=== PATIENT | male | born 1950 | race Hispanic/Latino ===

== ENCOUNTER 2020-01-03 07:11 | Emergency (ER) | payer MEDICARE ==
[~2020-01-03] VITALS: Ht 167.6 cm; Wt 78.9 kg
--- OUTSIDE RECORDS SUMMARY | 2020-01-03 07:29 | XMS REPORT | Continuity of Care Document ---
Author Author [employer] Organization [employer] Address Unknown Phone Unavailable Care Team Providers Care Line Out Man Name Role Phone In Flow Information Exchange Unavailable Un available Problems Problem Status Onset Date Classification Date Reported Comments Source T84.52XD - INFECT/INFLM REACTION DUE TO Active 10/05/2019 [facility] HEMATURIA, INABILITY TO URINATE Active 03/18/2019 [facility] CATHETER CHECK Active 03/18/2019 [facility] Acute cystitis with hematuria 03/17/2019 03/19/2019 [facility] Other retention of urine 03/17/2019 03/19/2019 [facility] BLEEDING FROM PENIS Active 03/17/2019 [facility] RECTAL BLEEDING Active 11/18/2018 [facility] DURGA, BRIGHT RED RECTAL BLEEDING Active 11/18/2018 [facility] UNK Active 0 10/07/2018 [facility] D64.9-ANEMIA, UNSPECIFIED , D69.6-THROMB Active 09/26/2018 [facility] G89.29 Active 09/12/2018 [facility] G89.29 OTHER CHRONIC PAIN Acti ve 09/04/2018 [facility] Gastroesophageal reflux disease (disorder) Active Problem 03/19/2019 [facility] Human immunodeficiency virus infection (disorder) Active Problem 03/19/2019 [facility] Hypertensive disorder, systemic arterial (disorder) Active Problem 03/19/2019 [facility] Malignant tumor of rectum (disorder) Resolved Problem 07/2019 [facility] Hyperglycemia Active Problem 08/01/2019 [facility] Hepatic cirrhosis, unspecified hepatic c irrhosis type, unspecified whether ascites present Active Problem 08/01/2019 [facility] Renal insufficiency Active Problem 08/01/2019 [facility] Osteoporosis without current pathologica l fracture, unspecified osteoporosis type Active Problem 08/01/2019 [facility] HIV disease Active Problem 08/01/2019 [facility] HTN (hypertension) with goal to be determined Active Problem 08/01/2019 [facility] Other chronic pain Active Problem 08/01/2019 [facility] Influenza vaccine needed Active Diagnosis 11/20/2018 [facility] Need for vaccination with 13-polyvalent pneumococcal conjugate vaccine Active Diag nosis 12/11/2018 [facility] Low back pain Active Diagnosis 12/11/2018 [facility] Bleeding hemorrhoids Active Diagnosis 12/11/2018 [facility] Encounter to discuss test results Active Diagnosis 0 10/07/2018 [facility] Prostate cancer screening Acti ve Diagnosis 0 08/30/2018 [facility] Physical exam Active Diagnosis 08/30/2018 [facility] Pain in right hip Active Diagnosis 07/28/2019 [facility] Pain in left hip Active Diagnosis 07/28/2019 [facility] Insomnia, unspecified type Act jojo Problem [facility] Lumbago with sciatica, right side Active Problem [facility] Rash Active Diagnosis 03/10/2019 [facility] Need for shingles vaccine Acti ve Diagnosis 0 04/13/2019 [facility] Abnormal CBC Active Diagnosis 03/10/2019 [facility] Pain in left knee Active Diagnosis 06/15/2019 [facility] Prostatitis, unspecified prostatitis type Active Diagnosis 04/13/2019 [facility] Hematuria, unspecified type Ac tive Diagnosis 0 04/13/2019 [facility] Lumbago with sciatica, left side Active Problem [facility] Nausea Active Diagnosis 06/15/2019 [facility] Encounter for pre-operative cardiovascular clearance Active Diagnosis 06/15/2019 [facility] HEMORRHAGE OF ANUS AND RECTUM Active [facility] GROSS HEMATURIA Active [facility] RETENTION OF URINE, UNSPECIFIED Active [facility] Medications Medication Details Route Status Patient Instructions Ordering Provider Order Date Source Zofran 1 tablet Orally Active 4 MG Orally Once a day prn nausea Keven Vicente 06/11/2019 [facility] Pepcid 1/2 half tablet Orally Active 20 MG Orally twice a da y (bid) [facility] 05/26/2019 [facility] cefpodoxime 100 mg oral tablet 100 mg = 1 tab, PO, Q12H, X 7 day, # 14 tab, 0 Refill(s) Active 03/18/2019 [facility] Morphine 4 mg, Route: IVP, ONC E, Dosing Weight 83.636, kg, Priority: STAT, Start date: 03/17/19 19:51:00 [employer], Stop date: 03/17/19 19:51:00 [employer] Inactive 03/18/2019 [facility] Zofran 4 mg, Route: IVP, Drug form: INJ, ONCE, Dosing Weight 83.636, kg, Priority: STAT, Start date: 03/17/19 19:51:00 [employer], Stop date: 03/17/19 19:51:00 [employer] Inactive 03/18/2019 [facility] Ceftriaxone Notes: (Same As: Mal carlson). Use with 100 mL NS and infuse over 30 min MEDICATION WASTE Product Size: 1000 mg Product Wasted: ___ mg Inactive 03/18/2019 [facility] Sodium Chloride 0.9% (Bolus) IV 1,000 mL, 1000 ml/hr, Infuse Over: 1 hr, Route: IV, 1,000, Drug form: INJ, ONCE, Priority: STAT, Dosing Weight 83.636 kg, Start date: 03/17/19 19:46:00 [employer], Stop date: 03/17/19 19:46:00 [employer], 0 Inactive 03/18/2019 [facility] Xifaxan 1 tablet Orally Active 550 MG Orally Twice a d ay [facility] Vicente 01/20/2019 [facility] Propranolol Notes: Give with f ood. (Same as: Inderal) Inactive 11/22/2018 [facility] propranolol 10 mg oral tablet 10 mg = 1 tab, PO, Q12H, # 60 tab, 0 Refill(s), Pharmacy: [address] [facility] Active 11/21/2018 [facility] tramadol hydrochloride 50 MG Oral Tablet 50 mg = 1 tab, PO, Q8H, PRN Pain, X 5 day, # 20 tab, 0 Refill(s) Active 11/21/2018 [facility] Cefuroxime 250 MG Oral Tablet 250 mg = 1 tab, PO, BID, X 7 day, # 14 tab, 0 Refill(s), Pharmacy: [place] [id number] ([facility] Active 11/21/2018 [facility] Streptococcus pneumoniae serotype 1 caps ular antigen diphtheria [id number] protein conjugate vaccine / Streptococcus pneumoniae serotype 14 capsular antigen diphtheria SFI122 protein conjugate vaccine / Streptococcus pneumoniae serotype 18C capsular antigen d Notes: Shake well prior to use (Same as: Prevnar 13) No Longe r Active 11/20/2018 [facility] Phenazopyridine Notes: Give wi th meals. (Same as: Pyridium) No Longer Active 11/20/2018 [facility] Oxycodone Hydrochloride 5 MG Oral Tablet Notes: (Same as: Roxicodone) No Longer Active 11/20/2018 [facility] Fluconazole Notes: (Same as: D iflucan) Inactive 11/20/2018 [facility] Ceftriaxone Notes: (Same As: Mal carlson). Use with 100 mL NS and infuse over 30 min MEDICATION WASTE Product Size: 1000 mg Product Wasted: ___ mg No Longer Active 11/20/2018 [facility] Protonix Notes: Tablet should not be chewed or crushed. (Same as: Protonix) No Longer Active 11/20/2018 [facility] Hydralazine 10 mg, Route: IVP, Q20Min, Dosing Weight 82.727, kg, PRN Elevated BP, Start date: 11/19/18 16:26:00 CDT, Duration: 2 doses or times, Stop date: Limited # of times Inactive 11/19/2018 [facility] Metoprolol 1 mg, Route: IVP, Q 5Min, Dosing Weight 82.727, kg, PRN Other -See Comment, Start date: 11/19/18 16:26:00 CDT, Duration: 5 doses or times, Stop date: Limited # of times Inactive 11/19/2018 [facility] Acetaminophen 1,000 mg, Route: PO, Drug form: TAB, ONCE, Dosing Weight 82.727, kg, PRN Pain Score 1-3, Start date: 11/19/18 16:26:00 CDT Inactive 11/19/2018 [facility] Morphine 2 mg, Route: IVP, Q5M in, Dosing Weight 82.727, kg, PRN Pain Score 4-6, Start date: 11/19/18 16:26:00 CDT, Duration: 5 doses or times, Stop date: Limited # of times Inactive 11/19/2018 [facility] Flumazenil 0.2 mg, Route: IVP, PRN, Dosing Weight 82.727, kg, PRN Benzodiazepine Reversal, Initial dose, Start date: 11/19/18 16:26:00 CDT, Duration: 30 day, Stop date: 12/19/18 15:25:00 [employer] Inactive 11/19/2018 [facility] Naloxone 0.4 mg, Route: IVP, Q 2MIN, Dosing Weight 82.727, kg, PRN Narcotic Reversal, Start date: 11/19/18 16:26:00 CDT, Duration: 8 doses or times, Stop date: Limited # of times Inactive 11/19/2018 [facility] Albuterol 0.83 MG/ML Inhalant Solution 2.49 mg, Route: NEB, Q20Min, Dosing Weight 82.727, kg, PRN Wheezing, Priority: STAT, Start date: 11/19/18 16:26:00 CDT, Duration: 30 day, Stop date: 12/19/18 15:25:00 [employer] Inactive 11/19/2018 [facility] Diphenhydramine 12.5 mg, Route : IVP, Drug form: INJ, Q6H, Dosing Weight 82.727, kg, PRN Itching, Start date: 11/19/18 16:26:00 CDT, Duration: 30 day, Stop date: 12/19/18 16:25:00 [employer] Inactive 11/19/2018 [facility] Meperidine 12.5 mg, Route: IVP , Q30Min, Dosing Weight 82.727, kg, PRN Other -See Comment, For shivering, Start date: 11/19/18 16:26:00 CDT, Duration: 2 doses or times, Stop date: Limited # of times Inactive 11/19/2018 [facility] Ondansetron 4 mg, Route: IVP, ONCE, Dosing Weight 82.727, kg, PRN Nausea & Vomiting, Start date: 11/19/18 16:26:00 CDT Inactive 11/19/2018 [facility] Promethazine 12.5 mg, Route: I M, ONCE, Dosing Weight 82.727, kg, PRN Nausea & Vomiting, Start date: 11/19/18 16:26:00 CDT Inactive 11/19/2018 [facility] phenylephrine (ANES) Route: IV , Drug form: INJ, ONCE, Stop date: 11/19/18 15:46:00 CDT Inactive 11/19/2018 [facility] dexamethasone (ANES) Route: IV , Drug form: INJ, ONCE, Stop date: 11/19/18 15:46:00 CDT Inactive 11/19/2018 [facility] glycopyrrolate (ANES) Route: I V, Drug form: INJ, ONCE, Stop date: 11/19/18 15:46:00 CDT Inactive 11/19/2018 [facility] neostigmine (ANES) Route: IV, Drug form: INJ, ONCE, Stop date: 11/19/18 15:46:00 CDT Inactive 11/19/2018 [facility] propofol (ANES) Route: IV, Heriberto g form: INJ, ONCE, Stop date: 11/19/18 14:45:00 CDT Inactive 11/19/2018 [facility] rocuronium (ANES) Route: IV, D rug form: INJ, ONCE, Stop date: 11/19/18 14:45:00 CDT Inactive 11/19/2018 [facility] lidocaine (ANES) Route: IV, Dr ug form: INJ, ONCE, Stop date: 11/19/18 14:45:00 CDT Inactive 11/19/2018 [facility] fentaNYL (ANES) Route: IV, Heriberto g form: INJ, ONCE, Stop date: 11/19/18 14:40:00 CDT Inactive 11/19/2018 [facility] ondansetron (ANES) Route: IV, Drug form: INJ, ONCE, Stop date: 11/19/18 14:40:00 CDT Inactive 11/19/2018 [facility] Lactated Ringers Injection IV (ANES) 1000 mL Route: IV, Total Volume: 1,000, Start date: 11/19/18 13:50:00 CDT, Stop date: 11/19/18 14:50:00 CDT Inactive 11/19/2018 [facility] Exparel Notes: (Same as: Alexandru dc) NOT FOR IV use Postoperative analgesia: Infiltration (local): Dose is based on surgical site and volume required to cover the area (in general, the maximum total dose is 266 mg). Bunionectomy: 7 mL into the tissues surrounding the osteotomy and 1 mL into the subcutaneous tissue of the surgical site (total dose = 8 mL [106 mg]) Hemorrhoidectomy: 30 mL (20 mL vial diluted with 10 mL NS) divided and administered as 6 injections of 5 mL each (total dose = 30 mL [266 mg]) Interscalene brachial plexus nerve block: Single dose: Total shoulder arthroplasty or rotator cuff repair: 133 mg (10 mL) No Longer Active 11/19/2018 [facility] LR IV 1,000 mL 1,000 mL, Rate: 40 ml/hr, Infuse over: 25 hr, Route: IV, Dosing Weight 82.727 kg, Total Volume: 1,000, Start date: 11/19/18 12:50:00 CDT, Duration: 1 day, Stop date: 11/20/18 12:49:00 CDT, 1.98, m2, 0 No Longer Active 11/19/2018 [facility] d50 syringe 25 gm, 50 mL, Rout e: IV, Drug Form: INJ, Dosing Weight 82.727, kg, ONCE, Start date: 11/19/18 9:47:00 CDT, Stop date: 11/19/18 9:47:00 CDT, 0 Inactive 11/19/2018 [facility] Insulin regular Notes: (Same a s: Humulin R, NovoLIN R) Roll in palms of hands gently; Do not shake vigorously. WASTE: F/P - Black; E - Municipal Trash Bin Stable for 31 days at room temperature Expi res in days from Date Inactive 11/19/2018 [facility] sodium bicarbonate 8.4% additive 75 mEq + D5W 1/2NS 1,000 mL Notes: (sodium bicarb 8.4% (1 mEq/ml) 50 ml VL) No Longer Active 11/19/2018 [facility] abacavir 600 MG / Lamivudine 300 MG Oral Tablet 1 tab, Route: PO, Drug Form: TAB, Dosing Weight 82.727, kg, Daily, Start date: 11/19/18 9:00:00 CDT, Duration: 30 day, Stop date: 12/18/18 9:00:00 [employer] No Longer Active 11/19/2018 [facility] oxybutynin Notes: (Same as: Di tropan XL) "Do Not Crush" No Longer Active 11/19/2018 [facility] tamsulosin Notes: (Same As: Fl omax) "Do Not Crush" No Longer Active 11/19/2018 [facility] Epivir Notes: (Same as:Epivir) No Longer Active 11/19/2018 [facility] Ziagen Notes: (Same as: Ziagen) No Longer Active 11/19/2018 [facility] Trazodone Notes: (Same As: Axel yrel) No Longer Active 11/19/2018 [facility] Dilaudid Notes: (Same as: Dila udid) No Longer Active 11/19/2018 [facility] Dilaudid Notes: (Same as: Dila udid) Inactive 11/19/2018 [facility] ISENTRESS 400 mg, 1 tab, Route : PO, Drug form: TAB, BID, Dosing Weight 82.727, kg, Start date: 11/18/18 17:00:00 CDT, Duration: 30 day, Stop date: 12/18/18 9:00:00 [employer], 0 No Longer Active 11/18/2018 [facility] XIFAXAN Notes: Same as: Xifaxan No Longer Active 11/18/2018 [facility] NS 1,000 mL 1,000 mL, Rate: 75 ml/hr, Infuse over: 13.3 hr, Route: IV, Dosing Weight 82.727 kg, Total Volume: 1,000, Start date: 11/18/18 16:47:00 CDT, Duration: 30 day, Stop date: 12/18/18 16:46:00 [employer], 1.98, m2, 0 No Longer Active 11/18/2018 [facility] Morphine Notes: (Same as:MORPh ine Sulfate) No Longer Active 11/18/2018 [facility] Protonix Notes: For IV push re constitute with 10 ml 0.9% sodium chloride and push over 2 minutes. (Same as: Protonix) No Longer Active 11/18/2018 [facility] Dextrose 50% Syringe 12.5 gm, 25 mL, Route: IVP, Drug Form: INJ, Dosing Weight 82.727, kg, PRN, PRN Blood Glucose Results, Start date: 11/18/18 15:37:00 CDT, Duration: 30 day, Stop date: 12/18/18 14:36:00 [employer], 0 No Longer Active 11/18/2018 [facility] Glucagon 1 mg, Route: IM, Drug form: PDR/INJ, PRN, Dosing Weight 82.727, kg, PRN Blood Glucose Results, Start date: 11/18/18 15:37:00 CDT, Duration: 30 day, Stop date: 12/18/18 14:36:00 [employer], 0 No Longer Active 11/18/2018 [facility] Morphine 4 mg, Route: IVP, ONC E, Dosing Weight 82.727, kg, Start date: 11/18/18 15:20:00 CDT, Stop date: 11/18/18 15:20:00 CDT Inactive 11/18/2018 [facility] oxybutynin 10 mg oral tablet, extended release 10 mg = 1 tab, PO, Daily, 0 Refill(s) Active 11/18/2018 [facility] tamsulosin 0.4 mg oral capsule 0.4 mg = 1 cap, PO, Daily, 0 Refill(s) Active 11/18/2018 [facility] Tylenol 650 mg, Route: PO, Heriberto g form: TAB, ONCE, Dosing Weight 82.727, kg, Priority: STAT, Start date: 11/18/18 13:08:00 CDT, Stop date: 11/18/18 13:08:00 CDT Inactive 11/18/2018 [facility] NS (Bolus) IV 1,000 mL, 1,000 ml/hr, Infuse Over: 3 hr, Route: IV, ONCE, Priority: STAT, Dosing Weight 82.727 kg, Start date: 11/18/18 13:06:00 CDT, Stop date: 11/18/18 13:06:00 CDT Inactive 11/18/2018 [facility] Saline Flush 0.9% Notes: (Same as: BD Posiflush) No Longer Active 11/18/2018 [facility] Metoclopramide 10 mg, Route: I [employer]YCHIAT[employer]IC REGISTERED NURSE, Drug form: INJ, ONCE, Dosing Weight 82.727, kg, Priority: STAT, Start date: 11/18/18 11:41:00 CDT, Stop date: 11/18/18 11:41:00 CDT Inactive 11/18/2018 [facility] Pepcid 1 tablet Orally Active 10 mg Orally twice a da y (bid) K[facility]ente 11/10/2018 [facility] Hydrocortisone 25 MG/ML Topical Cream [Anusol HC] 1 appl, KS, BID, X 14 day, # 30 gm, 0 Refill(s) Active 10/14/2018 [facility] Sodium Chloride 0.9% IV 1,000 mL 1,000 mL, Rate: 75 ml/hr, Infuse over: 13.3 hr, Route: IV, Dosing Weight 80 kg, Total Volume: 1,000, Start date: 10/14/18 12:35:00 CDT, Duration: 1 day, Stop date: 10/15/18 12:34:00 CDT, 1.96, m2, 0 Inactive 10/14/2018 [facility] ferrous sulfate 325 mg oral enteric coated tablet 325 mg = 1 tab, PO, Daily, 0 Refill(s) Active 10/10/2018 [facility] rifaximin 550 MG Oral Tablet [XIFAXAN] 550 mg = 1 tab, PO, BID, 0 Refill(s) Active 10/10/2018 [facility] Trazodone Hydrochloride 50 MG Oral Tablet 50 mg = 1 tab, PO, Bedtime, 0 Refill(s) Active 10/10/2018 [facility] efavirenz 600 MG / Lamivudine 300 MG / T enofovir disoproxil fumarate 300 MG Oral Tablet [Symfi] 1 tab, PO, QAM, 0 Refill(s) Active 10/10/2018 [facility] Lactulose 667 MG/ML Oral Solution 10 gm = 15 mL, PO, Daily, 0 Refill(s) Active 10/10/2018 [facility] lisinopril 2.5 mg oral tablet 2.5 mg = 1 tab, PO, Daily, 0 Refill(s) Active 10/10/2018 [facility] Pepcid AC 10 mg oral tablet, chewable PO, Bedtime, 0 Refill(s) Active 10/10/2018 [facility] Raltegravir 400 MG Oral Tablet [ISENTRESS] 400 mg = 1 tab, PO, BID, # 60 tab, 0 Refill(s) Active 10/10/2018 [facility] amLODIPine 10 mg oral tablet 1 0 mg = 1 tab, PO, Daily, 0 Refill(s) Active 10/10/2018 [facility] as directed Orally Active 600-300-300 MG Orally d aily Keven Vicente [facility] Tramadol HCl 1 tablet as needed Orally Active 50 MG Orally every 6 hrs Keven Vicente [facility] Trazodone HCl 1-2 tablets Orally Active 50 MG Orally qhs prn Keven Vicente [facility] Isentress 1 tablet Orally Active 400 MG Orally Twice a d ay Keven Vicente [facility] Lisinopril-Hydrochlorothiazide 1 tablet Orally Active 20-12.5 MG Orally Once a day Keven Vicente [facility] Hydrocodone-Acetaminophen 1 ta blet as needed Orally Active 5-325 MG Orally every 6 hrs Keven Vicente [facility] Norvasc 1 tablet Orally Active 5 MG Orally twice a day (bid) Ghebranda [facility] Famotidine 1 tablet PO Active 40 mg PO twice a day (b id) K[facility] Norvasc 1 tablet Orally Active 10 mg Orally daily Keven Vicente [facility] Xifaxan 1 tablet Orally Active 550 MG Orally Twice a d ay Keven Vicente [facility] Tamsulosin HCl not defined Oral Active 0.4 MG Oral K[facility] Oxybutynin Chloride ER not def ined Oral Active 10 MG Oral Keven Vicente [facility] PEG 3350-KCl-Na Bicarb-NaCl no t defined Oral Active 420 GM Oral K[facility] Vicente [facility] Amlodipine Besylate 1 tablet Orally Active 10 MG Orally Once a day K[facility] Oxybutynin Chloride ER 1 tablet Oral Active 10 mg Oral daily Keven Vicente [facility] Tamsulosin HCl not defined Oral Active 0.4 MG Oral daily Keven Vicente [facility] Hydrocodone-Acetaminophen 1 ta blet as needed Orally Active 7.5- 325 MG Orally every 6 hrs Keven Vicente [facility] Hydrocodone-Acetaminophen as d irected Orally Active 10-500 MG Orally Keven Vicente [facility] Allergies, Adverse Reactions, Alerts Substance Category Reaction Severity Reaction type Status Date Reported Comments Source codeine Adverse Reaction Info Not Available Adverse Reaction Active 06/11/2019 [facility] standavere Adverse Reaction Info Not Available Adverse Reactio n Active 06/11/2019 [facility] Immunizations Immunization Date Given Site Status Last Updated Comments Source Shingrix 04/10/2019 completed [facility] [id number] 12/04/2018 completed [facility] [id number] [address] & [place] [id number] 10/22 completed [facility] Results Order Name Results Value Reference Range Date Interpretation Comments Source URINE AND STOOL UA Turbidity Marked *ABN* (03/17/19 7:17 PM) Clear 03/18/2019 [facility] URINE AND STOOL UA Spec Grav 1.018 <=1.030 03/18/2019 [facility] URINE AND STOOL UA pH 8.0 5.0 - 8.0 03/18/2019 [facility] URINE AND STOOL UA Protein 100 mg/dL Negative mg/dL 03/18/2019 [facility] URINE AND STOOL UA Glucose Negative mg/dL Negative mg/dL 03/18/2019 [facility] URINE AND STOOL UA Ketones Negative mg/dL Negative mg/dL 03/18/2019 [facility] URINE AND STOOL UA Bili Negative *NA* (03/17/19 7:17 PM) Negative 03/18/2019 [facility] URINE AND STOOL UA Blood Large *ABN* (03/17/19 7:17 PM) Negative 03/18/2019 [facility] URINE AND STOOL UA Nitrite Negative (03/17/19 7:17 PM) Negative 03/18/2019 [facility] URINE AND STOOL UA Leuk Est Moderate *ABN* (03/17/19 7:17 PM) Negative 03/18/2019 [facility] URINE AND STOOL UA WBC >182 0 - 5 03/18/2019 [facility] URINE AND STOOL UA RBC >182 0 - 2 03/18/2019 [facility] URINE AND STOOL UA Sq Epi None Seen 03/18/2019 [facility] URINE AND STOOL UA Color Red 03/18/2019 [facility] URINE AND STOOL UA Urobilinogen <=1.0 mg/dL 0.1 - 1.0 03/18/2019 [facility] st Culture: Urine >100,000 CFU/mL Proteus mirabilis Sensitivity Pending 03/18/2019 [facility] CHEM PANEL Glucose Lvl 232 70 - 99 03/17/2019 [facility] CHEM PANEL BUN 37 7 - 22 03/17/2019 [facility] CHEM PANEL Creatinine Lvl 2.85 0.50 - 1.40 03/17/2019 [facility] CHEM PANEL Sodium Lvl 138 135 - 145 03/17/2019 [facility] CHEM PANEL Potassium Lvl 5.2 3.5 - 5.1 03/17/2019 [facility] CHEM PANEL Chloride Lvl 114 95 - 109 03/17/2019 [facility] CHEM PANEL CO2 17 24 - 32 03/17/2019 [facility] CHEM PANEL Calcium Lvl 8.5 8.5 - 10.5 03/17/2019 [facility] CHEM PANEL AGAP 12.2 10.0 - 20.0 03/17/2019 [facility] CHEM PANEL eGFR 22 03/17/2019 Result Comment: The eGFR is calculated using the CKD-EPI formula. In most young, healthy individuals the eGFR will be >90 mL/min/1.73m2. The eGFR declines with age. An eGFR of 60-89 may be normal in some populations, particularly the elderly, for whom the CKD-EPI formula has not been extensively validated. Use of the eGFR is not recommended in the following populations:

Individuals with unstable creatinine concentrations, including patients and those with serious co-morbid conditions.

Patients with extremes in muscle mass or diet.

The data above are obtained from the National Kid[employer] Disease Education Program (NKDEP) which additionally recommends that when the eGFR is used in patients with extremes of body mass index for purposes of drug dosing, the eGFR should be multiplied by the estimated BMI. [facility] HEMATOLOGY WBC 3.5 3.7 - 10.4 03/17/2019 [facility] HEMATOLOGY RBC 2.67 4.70 - 6.10 03/17/2019 [facility] HEMATOLOGY Hgb 9.2 14.0 - 18.0 03/17/2019 [facility] HEMATOLOGY Hct 27.2 42.0 - 54.0 03/17/2019 [facility] HEMATOLOGY MCV 101.6 80.0 - 94.0 03/17/[address] [facility] MCH 34.5 27.0 - 31.0 03/17/[address] [facility] MCHC 33.9 32.0 - 36.0 03/17/[address] [facility] RDW 14.6 11.5 - 14.5 03/17/[address] [facility] Platelet 91 133 - 450 03/17/[address] [facility] MPV 7.0 7.4 - 10.4 03/17/2019 [facility] HEMATOLOGY PT 15.0 12.0 - 14.7 03/17/2019 [facility] HEMATOLOGY INR 1.17 0.85 - 1.17 03/17/2019 [facility] HEMATOLOGY PTT 38.5 22.9 - 35.8 03/17/2019 [facility] HEMATOLOGY Plt Morph Gricel l (03/17/19 1:02 PM) Normal 03/17/2019 [facility] HEMATOLOGY Segs 81.1 45.0 - 75.0 03/17/2019 [facility] HEMATOLOGY Lymphocytes 3.1 20.0 - 40.0 03/17/2019 [facility] HEMATOLOGY Monocytes 15.5 2.0 - 12.0 03/17/2019 [facility] HEMATOLOGY Eosinophils 0.1 0.0 - 4.0 03/17/2019 [facility] HEMATOLOGY Basophils 0.2 0.0 - 1.0 03/17/2019 [facility] HEMATOLOGY Neutrophils # 2.8 1.5 - 8.1 03/17/[address] [facility] Lymphocytes # 0.1 1.0 - 5.5 03/17/[address] [facility] Monocytes # 0.5 0.0 - 0.8 03/17/[address] [facility] Macrocyte 1+ *ABN* (03/17/19 1:02 PM) None Seen 03/17/2019 [facility] CHEM PANEL Phosphorus 2.0 2.5 - 4.5 11/21/2018 [facility] ELECTROLYTES AGAP 8.9 10.0 - 20.0 11/21/2018 [facility] ELECTROLYTES Glucose Lvl 108 70 - 99 11/21/2018 [facility] ELECTROLYTES BUN 19 7 - 22 11/21/2018 [facility] ELECTROLYTES Creatinine Lvl 1.7 1 0.50 - 1.40 11/21/2018 [facility] ELECTROLYTES Sodium Lvl 138 135 - 145 11/21/2018 [facility] ELECTROLYTES Potassium Lvl 3.9 3.5 - 5.1 11/21/2018 [facility] ELECTROLYTES Chloride Lvl 111 95 - 109 11/21/2018 [facility] ELECTROLYTES CO2 22 24 - 32 11/21/2018 [facility] ELECTROLYTES Calcium Lvl 7.4 8.5 - 10.5 11/21/2018 [facility] ELECTROLYTES eGFR 41 11/21/2018 Result Comment: The eGFR is calculated using the CKD-EPI formula. In most young, healthy individuals the eGFR will be >90 mL/min/1.73m2. The eGFR declines with age. An eGFR of 60-89 may be normal in some populations, particularly the elderly, for whom the CKD-EPI formula has not been extensively validated. Use of the eGFR is not recommended in the following populations:

Individuals with unstable creatinine concentrations, including patients and those with serious co-morbid conditions.

Patients with extremes in muscle mass or diet.

The data above are obtained from the National Kidney Disease Education Program (NKDEP) which additionally recommends that when the eGFR is used in patients with extremes of body mass index for purposes of drug dosing, the eGFR should be multiplied by the estimated BMI. [facility] HEMATOLOGY Segs 73.0 45.0 - 75.0 11/21/[address] [facility] Lymphocytes 7.4 20.0 - 40.0 11/21/[address] [facility] Monocytes 12.1 2.0 - 12.0 11/21/[address] [facility] Eosinophils 7.1 0.0 - 4.0 11/21/[address] [facility] Basophils 0.4 0.0 - 1.0 11/21/[address] [facility] Neutrophils # 2.6 1.5 - 8.1 11/21/[address] [facility] Lymphocytes # 0.3 1.0 - 5.5 11/21/[address] [facility] Monocytes # 0.4 0.0 - 0.8 11/21/[address] [facility] Eosinophils # 0.3 0.0 - 0.5 11/21/[address] [facility] WBC 3.6 3.7 - 10.4 11/21/[address] [facility] RBC 2.50 4.70 - 6.10 11/21/[address] [facility] Hgb 8.4 14.0 - 18.0 11/21/[address] [facility] Hct 24.4 42.0 - 54.0 11/21/[address] [facility] MCV 97.5 80.0 - 94.0 11/21/[address] [facility] MCH 33.5 27.0 - 31.0 11/21/[address] [facility] MCHC 34.4 32.0 - 36.0 11/21/[address] [facility] RDW 18.3 11.5 - 14.5 11/21/[address] [facility] Platelet 63 133 - 450 11/21/[address] [facility] MPV 7.5 7.4 - 10.4 11/21/2018 [facility] ELECTROLYTES AGAP 10.0 10.0 - 20.0 11/20/2018 [facility] ELECTROLYTES Glucose Lvl 102 70 - 99 11/20/2018 [facility] ELECTROLYTES BUN 18 7 - 22 11/20/2018 [facility] ELECTROLYTES Creatinine Lvl 1.5 7 0.50 - 1.40 11/20/2018 [facility] ELECTROLYTES Sodium Lvl 140 135 - 145 11/20/2018 [facility] ELECTROLYTES Potassium Lvl 5.0 3.5 - 5.1 11/20/2018 [facility] ELECTROLYTES Chloride Lvl 115 95 - 109 11/20/2018 [facility] ELECTROLYTES CO2 20 24 - 32 11/20/2018 [facility] ELECTROLYTES Calcium Lvl 7.5 8.5 - 10.5 11/20/2018 [facility] ELECTROLYTES eGFR 45 11/20/2018 Result Comment: The eGFR is calculated using the CKD-EPI formula. In most young, healthy individuals the eGFR will be >90 mL/min/1.73m2. The eGFR declines with age. An eGFR of 60-89 may be normal in some populations, particularly the elderly, for whom the CKD-EPI formula has not been extensively validated. Use of the eGFR is not recommended in the following populations:

Individuals with unstable creatinine concentrations, including patients and those with serious co-morbid conditions.

Patients with extremes in muscle mass or diet.

The data above are obtained from the National Kidney Disease Education Program (NKDEP) which additionally recommends that when the eGFR is used in patients with extremes of body mass index for purposes of drug dosing, the eGFR should be multiplied by the estimated BMI. [facility] HEMATOLOGY WBC 3.5 3.7 - 10.4 11/20/2018 [facility] HEMATOLOGY RBC 2.71 4.70 - 6.10 11/20/2018 [facility] HEMATOLOGY Hgb 9.0 14.0 - 18.0 11/20/2018 [facility] HEMATOLOGY Hct 26.4 42.0 - 54.0 11/20/2018 [facility] HEMATOLOGY MCV 97.5 80.0 - 94.0 11/20/2018 [facility] HEMATOLOGY MCH 33.3 27.0 - 31.0 11/20/[address] [facility] MCHC 34.2 32.0 - 36.0 11/20/2018 [facility] HEMATOLOGY RDW 18.8 11.5 - 14.5 11/20/2018 [facility] HEMATOLOGY Platelet 72 133 - 450 11/20/2018 [facility] HEMATOLOGY MPV 7.9 7.4 - 10.4 11/20/2018 [facility] HEMATOLOGY RBC Morph Gricel l (11/20/18 5:19 AM) Normal 11/20/2018 [facility] HEMATOLOGY Plt Morph Gricel l (11/20/18 5:19 AM) Normal 11/20/2018 [facility] HEMATOLOGY Segs 75.4 45.0 - 75.0 11/20/2018 [facility] HEMATOLOGY Lymphocytes 9.0 20.0 - 40.0 11/20/2018 [facility] HEMATOLOGY Monocytes 10.3 2.0 - 12.0 11/20/2018 [facility] HEMATOLOGY Eosinophils 5.0 0.0 - 4.0 11/20/2018 [facility] HEMATOLOGY Basophils 0.3 0.0 - 1.0 11/20/2018 [facility] HEMATOLOGY Neutrophils # 2.6 1.5 - 8.1 11/20/2018 [facility] HEMATOLOGY Lymphocytes # 0.3 1.0 - 5.5 11/20/2018 [facility] HEMATOLOGY Monocytes # 0.4 0.0 - 0.8 11/20/2018 [facility] HEMATOLOGY Eosinophils # 0.2 0.0 - 0.5 11/20/2018 [facility] URINE AND STOOL UA Color Yellow *NA* (11/19/18 7:27 PM) Yellow 11/20/2018 [facility] URINE AND STOOL UA Turbidity Slight *ABN* (11/19/18 7:27 PM) Clear 11/20/2018 [facility] URINE AND STOOL UA Spec Grav 1.010 <=1.030 11/20/2018 [facility] URINE AND STOOL UA pH 8.0 5.0 - 8.0 11/20/2018 [facility] URINE AND STOOL UA Protein 30 mg/dL Negative mg/dL 11/20/2018 [facility] URINE AND STOOL UA Glucose Negative mg/dL Negative mg/dL 11/20/[address] [facility] st URINE AND STOOL UA Ketones Negative mg/dL Negative mg/dL 11/20/[address] [facility] [address] URINE AND STOOL UA Bili Negative *NA* (11/19/18 7:27 PM) Negative 11/20/2018 [facility] URINE AND STOOL UA Blood Moderate *ABN* (11/19/18 7:27 PM) Negative 11/20/2018 [facility] URINE AND STOOL UA Nitrite Positive *ABN* (11/19/18 7:27 PM) Negative 11/20/2018 [facility] URINE AND STOOL UA Leuk Est Large *ABN* (11/19/18 7:27 PM) Negative 11/20/2018 [facility] URINE AND STOOL UA WBC 70 0 - 5 11/20/2018 [facility] URINE AND STOOL UA RBC 3 0 - 2 11/20/2018 [facility] URINE AND STOOL UA Bacteria Many /HPF None Seen /HPF 11/20/2018 [facility] URINE AND STOOL UA Mucus Few /LPF None Seen /LPF 11/20/2018 [facility] URINE AND STOOL UA Tr Phos [place] Moderate /HPF None Seen /HPF 11/20/2018 [facility] URINE AND STOOL UA Landrum Yeast Few /HPF None Seen /HPF 11/20/2018 [facility] URINE AND STOOL UA Sq Epi None Seen 11/20/2018 [facility] URINE AND STOOL UA Urobilinogen <=1.0 mg/dL 0.1 - 1.0 11/20/2018 [facility] URINE CHEM U Creatinine 38.40 11/20/2018 [facility] URINE CHEM U Sodium 115 11/20/2018 [facility] CHEM PANEL Glucose Lvl 113 70 - 99 11/19/2018 [facility] CHEM PANEL BUN 18 7 - 22 11/19/2018 [facility] CHEM PANEL Creatinine Lvl 1.66 0.50 - 1.40 11/19/2018 [facility] CHEM PANEL Sodium Lvl 139 135 - 145 11/19/2018 [facility] CHEM PANEL Potassium Lvl 5.7 3.5 - 5.1 11/19/2018 [facility] CHEM PANEL Chloride Lvl 113 95 - 109 11/19/2018 [facility] CHEM PANEL CO2 21 24 - 32 11/19/2018 [facility] CHEM PANEL Calcium Lvl 7.4 8.5 - 10.5 11/19/2018 [facility] CHEM PANEL AGAP 10.7 10.0 - 20.0 11/19/2018 [facility] CHEM PANEL eGFR 42 11/19/2018 Result Comment: The eGFR is calculated using the CKD-EPI formula. In most young, healthy individuals the eGFR will be >90 mL/min/1.73m2. The eGFR declines with age. An eGFR of 60-89 may be normal in some populations, particularly the elderly, for whom the CKD-EPI formula has not been extensively validated. Use of the eGFR is not recommended in the following populations:

Individuals with unstable creatinine concentrations, including patients and those with serious co-morbid conditions.

Patients with extremes in muscle mass or diet.

The data above are obtained from the National Kidney Disease Education Program (NKDEP) which additionally recommends that when the eGFR is used in patients with extremes of body mass index for purposes of drug dosing, the eGFR should be multiplied by the estimated BMI. [facility] BLOOD BANK RESULTS RBC product Product available 5 (11/19/18 1:09 PM) 11/19/2018 Result Comment: 11/19/2018 1 3:25 [id number]
notified [facility] BLOOD BANK RESULTS RBC product Product available 6 (11/19/18 1:06 PM) 11/19/2018 Result Comment: 11/19/2018 1 3:24 [id number]
notified [facility] BLOOD BANNER RESULTS Platelet product Product available 4 (11/19/18 1:05 PM) 11/19/2018 Result Comment: 11/19/2018 1 3:24 [id number]
notified [facility] Segs 60.4 45.0 - 75.0 11/19/[address] [facility] Lymphocytes 15.5 20.0 - 40.0 11/19/[address] [facility] Monocytes 11.0 2.0 - 12.0 11/19/[address] [facility] Eosinophils 12.2 0.0 - 4.0 11/19/[address] [facility] Basophils 0.9 0.0 - 1.0 11/19/[address] [facility] Neutrophils # 1.7 1.5 - 8.1 11/19/[address] [facility] Lymphocytes # 0.4 1.0 - 5.5 11/19/[address] [facility] Monocytes # 0.3 0.0 - 0.8 11/19/[address] [facility] Eosinophils # 0.3 0.0 - 0.5 11/19/[address] [facility] Macrocyte 1+ *ABN* (11/19/18 6:41 AM) None Seen 11/19/[address] [facility] WBC 2.8 3.7 - 10.4 11/19/[address] [facility] RBC 2.37 4.70 - 6.10 11/19/[address] [facility] Hgb 8.1 14.0 - 18.0 11/19/[address] [facility] Hct 24.1 42.0 - 54.0 11/19/2018 [facility] HEMATOLOGY MCV 101.4 80.0 - 94.0 11/19/[address] [facility] MCH 34.1 27.0 - 31.0 11/19/[address] [facility] MCHC 33.7 32.0 - 36.0 11/19/[address] [facility] RDW 16.9 11.5 - 14.5 11/19/[address] [facility] Platelet 74 133 - 450 11/19/[address] [facility] MPV 7.2 7.4 - 10.4 11/19/2018 [facility] BLOOD BANK RESULTS ABO/Rh B POS 11/18/2018 [facility] BLOOD BANK RESULTS Antibody Scrn Negative (11/18/18 11:57 AM) 11/18/2018 [facility] CHEM PANEL B/C Ratio 13 6 - 25 11/18/2018 [facility] CHEM PANEL Globulin 4.6 2.7 - 4.2 11/18/2018 [facility] CHEM PANEL A/G Ratio 0.7 0.7 - 1.6 11/18/2018 [facility] CHEM PANEL Total Protein 7.6 6.4 - 8.4 11/18/2018 [facility] CHEM PANEL Albumin Lvl 3.0 3.5 - 5.0 11/18/2018 [facility] CHEM PANEL ALT 29 0 - 65 11/18/2018 [facility] CHEM PANEL AST 40 0 - 37 11/18/2018 [facility] CHEM PANEL Alk Phos 244 39 - 136 11/18/2018 [facility] CHEM PANEL Bili Total 0.5 0.2 - 1.3 11/18/[address] [facility] INR 1.01 0.85 - 1.17 11/18/2018 [facility] HEMATOLOGY PT 13.1 12.0 - 14.7 11/18/[address] [facility] PTT 39.6 22.9 - 35.8 11/18/2018 [facility] HEMATOLOGY Macrocyte 1+ *ABN* (11/18/18 11:57 AM) None Seen 11/18/2018 [facility] Pathology Reports No Data Provided for This Section Diagnostic Reports Report Value Date Source Arthrocentesis Major Joint DX EXAM: FLUOROSCOPY-GUIDED LEFT HIP ASPIRATION DATE: 10/23/2019 11:41 CDT. 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 COMPARISON: None. PRE-PROCEDURE: Consent: An informed consent was obtained from the patient, prior to the procedure. Site and side were marked. Appropriate time out procedures were performed. PROCEDURE: The skin was prepped and draped in the usual fashion under aseptic precautions. 1% lidocaine was utilized for local anesthesia. Preliminary imaging demonstrates postoperative changes of total hip arthroplasty. Under fluoroscopic guidance a 22 gauge long spinal needle was used to access the hip joint. Approximately 16 mL of pink-tinged serous/synovial fluid were aspirated from the joint. Fluid was sent to the lab for culture. No immediate complications. Preprocedure pain score: 7/10 FLUOROSCOPY TIME: 0.13 minutes FLUOROSCOPY DOSE: 10.[address] Keiry Root, attending, was present for the procedure. IMPRESSION: Technically successful fluoroscopy-guided left hip aspiration. 10/23/2019 [facility] Chest wo contrast CT Radiation Dose CTDIVOL = 0 (mGy): DLP = 309.91 (mGy-cm) PROCEDURE INFORMATION: Exam: CT Chest Without Contrast Exam date and time: 03/20/2019 12:55 PM Age: 68 years old Clinical indication: /hemoptysis () TECHNIQUE: Imaging protocol: Computed tomography of the chest without contrast. Total DLP: 309.91 mGy-cm Radiation optimization: All CT scans at this facility use at least one of these dose optimization techniques: automated exposure control; mA and/or kV adjustment per patient size (includes targeted exams where dose is matched to clinical indication); or iterative reconstruction. COMPARISON: No relevant prior available for comparison. FINDINGS: Lungs: There are nodular and ground-glass opacities within both upper lobes, right greater than left and within the apical right lower lobe. Mild dependent atelectasis. Pleural space: No pneumothorax. No pleural effusion. Heart: There are coronary artery calcifications. The heart is enlarged. Aorta: No aortic aneurysm. Lymph nodes: No enlarged lymph nodes. Evaluation of hilar adenopathy is limited without contrast. Liver: Cirrhotic morphology of the liver. Gallbladder and bile ducts: Gallbladder is surgically absent. Spleen: Splenomegaly. Intraperitoneal space: There is abdominal ascites. Bones/joints: There are Schmorl's nodes within the thoracic spine. There is an old, healed left rib fracture. Soft tissues: There is bilateral gynecomastia. IMPRESSION: 1. Nodular ground-glass opacities within the mid to upper lung zones. This is nonspecific and may be related to pneumonitis or in the setting of hemoptysis alveolar hemorrhage 2. Cirrhotic liver with evidence of port al hypertension Yue Castillo MD On 03/21/2019 09:50:23; [id number] 03/20/2019 [facility] Retroperitoneal Complete US [place] OCEDURE INFORMATION: Exam: US Retroperitoneal Complete. Exam date and time: 03/19/2019 5:03 PM Age: 68 years old Clinical indication: Abnormal findings; Abnormal lab test; Abnormal kidney function lab tests; Additional info: Renal insufficiency/durga/ckd TECHNIQUE: Imaging protocol: Real-time ultrasound of the retroperitoneum with image documentation. Complete exam. COMPARISON: RETROPERITONEAL COMPLETE US 11/19/2018 10:[address] 03/18/2019 11:22:46 PM FINDINGS: Right kidney: Measures 11.3 cm. Normal morphology and echogenicity. No echogenic foci/nephrolithiasis. No hydronephrosis. Left kidney: Measures 10.7 cm. Normal morphology and echogenicity. No echogenic foci/nephrolithiasis. No hydronephrosis. Aorta: Visualized proximal abdominal aorta is unremarkable. Mid and distal aorta not visualized due to obscuring bowel gas. Common iliac arteries: Not visualized due to obscuring bowel gas. Inferior vena cava: Unremarkable. Bladder: Clemente catheter is in place within decompressed bladder, which limits evaluation. IMPRESSION: 1. Unremarkable renal ultrasound exam. 2. Decompressed urinary bladder with Fol ey catheter place. Ramone Mariscal MD On 03/19/2019 17:29:04; [id number] 03/19/2019 [facility] Renal Stone CT Radiation Dose CTDIVOL = 0 (mGy): DLP = 1169.89 (mGy-cm) PROCEDURE INFORMATION: Exam: CT Abdomen And Pelvis Without Contrast Exam date and time: 03/18/2019 11:22 PM Age: 68 years old Clinical indication: Abdominal pain; Additional info: Abdominal pain, acute/renal stone protocol. PT presents with C/O catheter check. Reports its leaking blood. States he had a procedure on prostate on Saturday. TECHNIQUE: Imaging protocol: Computed tomography of the abdomen and pelvis without contrast. Total DLP: 1169.89 mGy-cm Radiation optimization: All CT scans at this facility use at least one of these dose optimization techniques: automated exposure control; mA and/or kV adjustment per patient size (includes targeted exams where dose is matched to clinical indication); or iterative reconstruction. COMPARISON: Comparison made to CT abdomen dated 11/18/2018. FINDINGS: Lungs: Mild lung base bronchiectasis, no infiltrate. Global cardiomegaly. Right gynecomastia. Liver: Micronodular liver contour consistent with cirrhosis. No mass. Gallbladder and bile ducts: Post cholecystectomy. No ductal dilation. Pancreas: Normal. No ductal dilation. Spleen: Splenomegaly, 13.9 cm craniocaudad splenic length. Adrenals: Normal. No mass. Kidneys and ureters: No renal stone or hydronephrosis bilaterally. Stomach and bowel: Unremarkable. No obstruction. No mucosal thickening. Appendix: Not visualized. Intraperitoneal space: Unremarkable. No free air. Trace perihepatic and pelvic ascites. Retroperitoneal space: No adenopathy. Vasculature: Unremarkable. No abdominal aortic aneurysm. Lymph nodes: Unremarkable. No enlarged lymph nodes. Bladder: Clemente catheter decompresses the urinary bladder. Reproductive: Unremarkable as visualized. Bones/joints: Bilateral hip arthroplasty hardware. No acute fracture. Previous L4 kyphoplasty Soft tissues: Limited pelvic evaluation related to beam hardening artifact. IMPRESSION: 1. Liver cirrhosis. Small volume ascites and splenomegaly (13.9 cm craniocaudad splenic length) is secondary evidence for portal venous hypertension. 2. Very limited pelvic soft tissue evalu ation by CT related to beam hardening artifact from bilateral hip arthroplasty hardware. No made of a Clemente catheter which appears to be within the urinary bladder. 3. Previous cholecystectomy. 4. Cardiomegaly, bibasilar lung bronchie ctasis, mild. No acute infiltrate. 5. Right gynecomastia. 6. Previous L4 kyphoplasty. Edenilson Blue MD On 03/18/2019 23:47:45; [id number] 03/18/2019 [facility] Retroperitoneal Complete US Cl inical Indication: Renal insufficiency - durga; Comparison: None TECHNIQUE: Multiple longitudinal and transverse real time sonographic images of the kidneys and urinary bladder are obtained. FINDINGS: Suboptimal evaluation secondary to overlying bowel gas and patient's difficulty holding breath for the exam. KIDNEY: The right kidney measures 10.5 x 5.7 x 4.4 cm. The left kidney measures 11.2 x 6.8 x 4.6 cm. The kidneys are normal in size, shape, contour, and position. The cortices are normal in thickness and the corticomedullary differentiation is maintained. There is no hydronephrosis, nephrolithiasis, or abnormal perinephric collections. BLADDER: Scanning through the pelvis reveals the bladder to be partially distended with anechoic urine. ASCITES: No ascites noted. AORTA AND IVC: Not well visualized. IMPRESSION: Within limitations, unremarkable renal ultrasound. SL: [id number] 11/19/2018 [facility] Abdomen/Pelvis wo IV contrast CT PROCEDURE: CT ABDOMEN AND PELVIS WITHOUT CONTRAST Clinical Indication: Rectal bleeding and cirrhosis. . Comparison: No relevant priors available. TECHNIQUE: Helical imaging was performed diaphragm through the symphysis with multiplanar reconstructions. IV CONTRAST: None. GI CONTRAST: None. CT imaging performed at this location utilizes radiation dose optimization techniques which include one or more of the following: -Automated exposure control -Adjustment of the mA and/or kV accordin g to patient size -Use of iterative reconstruction 8bit ue CT Radiation Dose DLP 1008.05 mGy-cm FINDINGS: This examination is limited for the evaluation of solid organs and vascular structures due to lack of intravenous contrast. LOWER CHEST: The lung bases are clear. LIVER: Nodular hepatic contour. No focal liver lesions. GALLBLADDER: Cholecystectomy. SPLEEN: Spleen is enlarged. No focal splenic lesions evident. PANCREAS: Normal. ADRENALS: Normal. KIDNEYS: No stones, hydronephrosis or hydroureter. No perinephric fluid collections. BOWEL: Large and small bowel are normal. However the edema hardening artifact from the patient's hip prostheses obscure the distal sigmoid colon and rectum. PERITONEUM: No free intraperitoneal fluid or air. RETROPERITONEUM: No adenopathy. The aorta is normal. PELVIS: No pelvic mass. The urinary bladder is normal. MUSCULOSKELETAL: Patient has undergone bilateral hip arthroplasties in the past. There is moderate chronic appearing compression of the L4 vertebral body. Bones otherwise appear intact. IMPRESSION: 1. Cirrhosis and splenomegaly. 2. The patient's bilateral hip prosthese s obscure the rectum and adjacent soft tissues. END REPORT SL: [id number] 11/18/2018 [facility] Consultation Notes No Data Provided for This Section Discharge Summaries No Data Provided for This Section History and Physicals No Data Provided for This Section Vital Signs Vital Sign Value Date Comments Source Weight 189 04/10/2019 [facility] Height 63 0 04/10/2019 [facility] Temperature Oral (F) 98.1 F 04/10/2019 [facility] Heart Rate 78 04/10/2019 [facility] Diastolic (mm Hg) 56 04/10/2019 [facility] Systolic (mm Hg) 110 04/10/2019 [facility] Systolic (mm Hg) 160 03/18/2019 [facility] Diastolic (mm Hg) 71 03/18/2019 [facility] Rate 19 03/18/2019 [facility] Temperature Oral (F) 98.2 F 03/18/2019 [facility] Respitory Rate 21 03/18/2019 [facility] Systolic (mm Hg) 161 03/18/2019 [facility] Diastolic (mm Hg) 71 03/18/2019 [facility] Respitory Rate 25 03/18/2019 [facility] Systolic (mm Hg) 150 03/17/2019 [facility] Diastolic (mm Hg) 73 03/17/2019 [facility] Heart Rate 101 03/17/2019 [facility] Temperature Oral (F) 98.1 F 03/17/2019 [facility] Height 167.64 cm 03/17/2019 [facility] BMI Calculated 29.76 03/17/2019 [facility] Weight 83.636 03/17/2019 [facility] Weight 185 03/05/2019 [facility] Height 63 0 03/05/2019 [facility] Temperature Oral (F) 98.1 F 03/05/2019 [facility] Heart Rate 85 03/05/2019 [facility] Diastolic (mm Hg) 60 03/05/2019 [facility] Systolic (mm Hg) 118 03/05/2019 [facility] Weight 176 12/04/2018 [facility] Height 63 1 [facility] Heart Rate 79 12/04/2018 [facility] Diastolic (mm Hg) 68 12/04/2018 [facility] Systolic (mm Hg) 122 12/04/2018 [facility] Temperature Oral (F) 100.0 F 11/21/2018 [facility] Heart Rate 76 11/21/2018 [facility] Systolic (mm Hg) 138 11/21/2018 [facility] Diastolic (mm Hg) 68 11/21/2018 [facility] Temperature Oral (F) 98.9 F 11/21/2018 [facility] Heart Rate 78 11/21/2018 [facility] Systolic (mm Hg) 133 11/21/2018 [facility] Diastolic (mm Hg) 69 11/21/2018 [facility] Temperature Oral (F) 99.9 F 11/21/2018 [facility] Heart Rate 77 11/21/2018 [facility] Systolic (mm Hg) 128 11/21/2018 [facility] Diastolic (mm Hg) 65 11/21/2018 [facility] Respitory Rate 18 11/19/2018 [facility] Respitory Rate 18 11/19/2018 [facility] Respitory Rate 17 11/19/2018 [facility] Height 167.64 cm 11/18/2018 [facility] BMI Calculated 29.44 11/18/2018 [facility] Weight 82.727 11/18/2018 [facility] Respitory Rate 16 10/14/2018 [facility] Systolic (mm Hg) 132 10/14/2018 [facility] Diastolic (mm Hg) 66 10/14/2018 [facility] Respitory Rate 20 10/14/2018 [facility] Systolic (mm Hg) 115 10/14/2018 [facility] Diastolic (mm Hg) 63 10/14/2018 [facility] Respitory Rate 21 10/14/2018 [facility] Systolic (mm Hg) 105 10/14/2018 [facility] Diastolic (mm Hg) 65 10/14/2018 [facility] Temperature Oral (F) 97.6 F 10/10/2018 [facility] Heart Rate 78 10/10/2018 [facility] Height 170.18 cm 10/10/2018 [facility] Weight 80 0 10/10/2018 [facility] BMI Calculated 27.62 10/10/2018 [facility] Weight 179 09/22/2018 [facility] Height 63 0 09/22/2018 [facility] Heart Rate 97 09/22/2018 [facility] Diastolic (mm Hg) 62 09/22/2018 [facility] Systolic (mm Hg) 118 09/22/2018 [facility] Weight 171 08/22/2018 [facility] Height 63 0 08/22/2018 [facility] Heart Rate 97 08/22/2018 [facility] Diastolic (mm Hg) 64 08/22/2018 [facility] Systolic (mm Hg) 124 08/22/2018 [facility] Encounters Location Location Details Encounter Type Encounter Number Reason For Visit Attending Provider ADM Date DC Date Status Source [facility] OP Therapy Patients [id number] Lakshmi Valencia 09/12/2018 10/12/2018 [facility] Bedded Outpatient [id number] Octaviano Ortiz 10/14/2018 10/14/2018 [facility] [place] OP Therapy Patients [id number] Lakshmi Valencia 10/16/2018 11/15/2018 [facility] OP Therapy Patients [id number] Lakshmi Valencia 11/17/2018 12/17/2018 [facility] Inpatient [id number] Jaguar Granados 11/18/2018 11/21/2018 [facility] Outpatient [id number] Faith Benavides 11/19/2018 Active [facility] [id number] [facility] 12/02/2018 Active [facility] [id number] Mohummed Mahadani 12/02/2018 12/02/2018 [facility] [id number] Faith Benavides 12/12/2018 Active [facility] [id number] Mohummed Kennedy 12/12/2018 12/12/2018 [facility] OP Therapy Patients [id number] Lakshmi Valencia 12/19/2018 01/18/2019 [facility] [place] OP Therapy Patients [id number] Lakshmi Valencia 01/19/2019 02/11/2019 [facility] [place] OP Therapy Patients [id number] Lakshmi Valencia 02/13/2019 03/15/2019 [facility] Emergency [id number] Tk Rico 03/17/2019 03/18/2019 [facility] Outpatient [id number] Cyndy Ocampo 09/24/2019 [facility] [id number] Cyndy Ocampo 10/12/2019 Active [facility] Outpatient [id number] Cyndy Georgemarkie 10/27/2019 Active [facility] Procedures Procedure Code Date Perfomer Comments Source Achilles tendon repair [id number] 02/12/1984 [facility] Arthroplasty [id number] [facility] Arthroplasty of knee [id number] [facility] Cholecystectomy [id number] [facility] Colonoscopy [id number] [facility] Esophagogastroduodenoscopy [id number] [facility] Operation [id number] [facility] Assessment and Plan Assessment and Plan Date Source Extracted from:Title: Clinical Document Author: Omari Burleson MD Date: 11/21/18 [facility] Progress Note Omari Burleson MD Subjective: No events overnight. No CP, no SOB, no abd pain, no urinary signs of symptoms Scheduled Meds (10): 11/19/18 abacavir (Ziagen) 600 mg PO Christal ly 11/20/18 cefTRIAXone + sterile water 10 mL 1 gm IV [id number] 120 ml/hr 11/19/18 lamiVUDine (Epivir) 300 mg PO D aily 11/19/18 oxybutynin 10 mg PO Daily 11/19/18 pantoprazole (Protonix) 40 mg P O Q12H 11/20/18 phenazopyridine 100 mg PO TID-A fter Meals 11/21/18 propranolol 10 mg PO Q12H 11/18/18 raltegravir (Isentress) 400 mg PO BID 11/18/18 riFAXimin (Xifaxan) 550 mg PO B ID 11/19/18 tamsulosin 0.4 mg PO Daily Objective: Vitals Tmp(F) Pulse BP RR SpO2 FIO2 11/21 11:14 100.0 76 138/68 -- 96 --- 11/21 08:01 98.9 78 133/69 - - 98 --- 11/21 04:59 99.9 77 128/65 - - 96 --- 11/21 00:39 98.7 76 134/69 - - 96 --- 11/20 19:35 99.7 81 126/67 - - 97 --- 24 Hr Tmax: 100.0F (37.78c) at 11/21 11: 14 Vital Signs are the last 5 in the past 48 hours. Input/Output Record In Out Bal 11/21 24hr Tot 10 1100 - 1090 11/20 24hr Tot 1403 800 603 Gen: NAD Neck: supple CV: S1S2 no mgr Chest: CTAB Abd: soft NTND + BS Ext: no edema Labs: Labs (Last four charted values) WBC L 3.6 (NOV 21) L 3.5 (NOV 20) L 2.8 (NOV 19) L 3.0 (NOV 18) Hgb L 8.4 (NOV 21) L 9.0 (NOV 20) L 8.1 (NOV 19) L 9.0 (NOV 18) Hct L 24.4 (NOV 21) L 26.4 (NOV 20) L 24.1 (NOV 19) L 26.8 (NOV 18) Plt L 63 (NOV 21) L 72 (NOV 20) L 74 (NOV 19) L 83 (NOV 18) Na 138 (NOV 21) 140 (NOV 20) 139 (NOV 19) 140 (NOV 19) K 3.9 (NOV 21) 5.0 (NOV 20) H 5.7 (NOV 19) H 5.7 (NOV 19) CO2 L 22 (NOV 21) L 20 (NOV 20) L 21 (NOV 19) L 20 (NOV 19) Cl H 111 (NOV 21) H 115 (NOV 10) H 113 (NOV 19) H 115 (NOV 19) Cr H 1.71 (NOV 21) H 1.57 (NOV 20) H 1.66 (NOV 19) H 1.59 (NOV 19) BUN 19 (NOV 21) 18 (NOV 10) 18 (NOV 19) 19 (NOV 19) Glucose Random H 108 (NOV 21) H 102 (NOV 10) H 113 (NOV 19) H 104 (NOV 19) Phos L 2.0 (NOV 21) Ca L 7.4 (NOV 21) L 7.5 (NOV 10) L 7.4 (NOV 19) L 7.9 (NOV 19) PT 13.1 (NOV 18) INR 1.01 (NOV 18) PTT H 39.6 (NOV 18) Assessment/plan: >DURGA/HIV/cirrhosis , suspect volume depletion, indices stable. >met acidosis better on bicarb drip, ok to dc >hyperkalemia resolved. >volume status better, dc IVF Extracted from:Title: Clinical Document Author: Faith Benavides MD Date: 11/19/18 PREOPERATIVE DIAGNOSIS: 1-Rectal bleeding 2-Liver cirrhosis with signs of portal h ypertension 3-HIV 4-Rectal cancer s/p chemoradiation 5-Blood loss anemia 6-Thrombocytopenia POSTOPERATIVE DIAGNOSIS: 1-As above 2-Rectal varices PROCEDURE: 1- Examination under anesthesia 2- Control of multiple rectal varices bl eeding with suture ligation SURGEON: Dr. Benavides. USER INTERFACE DEVELOPER: None. ANESTHESIA: General+local ESTIMATED BLOOD LOSS: 50 ml FINDINGS: Multiple rectal varices with friable mucosa which bleeds easily with contact. The bleeding is brisk, non pulsatile. DISPOSITION: Tolerated the procedure well, extubated in the operating room and transferred post-anesthesia care unit in stable hemodynamic condition. COUNTS: The sponge, needle, instrument counts were correct at the end of the case x 2. COMPLICATIONS: None. INDICATIONS FOR PROCEDURE: The patient is a 68-year-old with past medical history of HIV, rectal cancer status post chemo radiation, liver cirrhosis with portal hypertension, history of esophageal varices, who presented with rectal bleeding. The source of the bleeding was not clearly identified, but it was thought to be from the rectal area. I had detailed discussion with the patient regarding his symptoms. I do recommend to proceed with examination under anesthesia, control of bleeding, flexible sigmoidoscopy in coordination with the GI service. Informed consent was obtained. All questions were answered to his satisfaction. PROCEDURE IN DETAIL: The patient was brought to the operating room, placed on the table in supine position. General endotracheal anesthesia was induced successfully. Subsequently, he was placed in lithotomy position on candy canes. The perineum was prepped and draped in usual standard sterile fashion. Patient had flexible sigmoidoscopy by GI service, there is no evidence of active bleeding inside the rectum, however, clots were identified inside the rectum with stigmata of bleeding was identified on the left lateral aspect of the perirectal area. We proceeded with examination under anesthesia, multiple rectal varices were identified. On the left lateral aspect of the perirectal area, a stigmata of bleeding was identified, we proceeded with suture ligation using 3-0 Vicryl suture. Further suture ligation was performed of the rectus varices on the right lateral and posterior aspect of the perirectal a as brisk bleeding from friable mucosa was encountered. Suture ligation of bleeding points using running of 3-0 Vicryl was performed. Satisfactory bleeding control was achieved. The anal canal was irrigated with saline to confirm hemostasis. Large piece of Gelfoam was placed in the anal canal for hemostasis effect. Local anesthesia using 1% lidocaine with epinephrine was used for field block. The procedure was completed. Extracted from:Title: History and Physical Author: Jaguar Granados MD Date: 11/18/18 1.Bright red rectal bleeding(K62.5) Likely hemorrhoidal bleeding GI, colorectal surgery on board PPI Transfuse as needed Ordered: Admit/Condition, 11/18/18 14:16:00 CDT, Status: Out Patient with Observation Services, Acute, Expected LOS: 1 Midnight, Jose Leonard MD, Admit Review/Approve Yes, DURGA (acute kidney injury) | Bright red rectal bleeding 2.DURGA (acute kidney injury)(N17.9) Possible hepatorenal Gentle hydrationsince he is n.p.o. 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 Substance Abuse Use: None. Smoking Status Never smoker; Exposure to Tobacco Smoke None; Cigarette Smoking Last 365 Days No; Reg Smoking Cessation Counseling No entered on: 11/18/18 10/10/2018 [facility] Social History TypeResponse Alcohol Past Employment/School Status: Retired. Substance Abuse Use: None. Smoking Status Never smoker; Exposure to Tobacco Smoke None; Cigarette Smoking Last 365 Days No; Reg Smoking Cessation Counseling No entered on: 11/18/18 10/10/2018 [facility] Social History TypeResponse Alcohol Past Employment/School Status: Retired. Substance Abuse Use: None. Smoking Status Never smoker; Exposure to Tobacco Smoke None; Cigarette Smoking Last 365 Days No; Reg Smoking Cessation Counseling No entered on: 03/19/19 10/10/2018 [facility] Family History No Data Provided for This Section Advance Directives No Data Provided for This Section Functional Status No Data Provided for This Section
--- OUTSIDE RECORDS SUMMARY | 2020-01-03 07:30 | XMS REPORT | Continuity of Care Document ---
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 Name Role Phone Santos Rico Attphys Elaine Valencia Attphys Unavailable Devon Benavides Attphys SaJaguar bolanos Attphys Juan Ortiz Attphys SaJaguar bolanos Admphys Problems Condition Name Condition Details Condition Category Status Onset Date Resolution Date Last Treatment Date Treating Clinician Comments Source T84.52XD - INFECT/INFLM REACTION DUE TO T84.52XD - INFECT/INFLM REACTION DUE TO Active 10/05/2019 [facility] [place] Diagnosis Active 2019-10-05 00:01:00 2019-10-23 11:11:00 M dyanrimaxim Mcclelland CHIRAG HEMATURIA, INABILITY TO URINATE CHIRAG HEMATURIA, INABILITY TO URINATE Active 03/18/2019 [facility] Diagnosis Ac tive 2019-03-18 00:00:00 2019-03-20 13:57:00 [facility] CATHETER CHECK CATH ETER CHECK Active 03/18/2019 [facility] Diagnosis Active 2019-03-18 00:00:00 2019-03-18 20:43:00 [facility] BLEEDING FROM PENIS BLEE DING FROM PENIS Active 03/17/2019 [facility] Diagnosis Active 2019-03-17 00:00:00 2019-04-09 08:29:00 [facility] RECTAL BLEEDING RECT AL BLEEDING Active 11/18/2018 [facility] Diagnosis Active 2018-11-18 00:00:00 2018-11-18 14:35:00 [facility] DURGA, BRIGHT RED RECTAL BLEEDING DURGA, BRIGHT RED RECTAL BLEEDING Active 11/18/2018 [facility] Diagnosis Active 2018-11-18 00:0 0:00 2018-12-04 22:30:00 Vijay Mcclelland UNK UNK Active 10/07/2018 [facility] Diagnosis Active 2018-10-07 00:00:00 2019-04-09 08:08:00 [facility] D64.9-ANEMIA, UNSPECIFIED , D69.6-THROMB D64.9-ANEMIA, UNSPECIFIED , D69.6-THROMB Active 09/26/2018 [facility] Diagnosis Ac tive 2018-09-26 00:00:00 2019-01-05 16:28:00 [facility] G89.29 G89. 29 Active 09/12/2018 [facility] [place] Diagnosis Active 2018-09-12 08:00:00 2019-03-16 10:12:00 Vijay Mcclelland G89.29 OTHER CHRONIC PAIN G89. 29 OTHER CHRONIC PAIN Active 09/04/2018 [facility] [place] Diagnosis Active 2018-09-04 08:00:00 2018-09-12 10:05:00 Vijay Mcclelland Malignant tumor of rectum (disorder) Malignant tumor of rectum (disorder) Resolved Problem 03/19/2019 [facility] [place] Problem Resolved 2019-03-19 23:54:06 Vijay Mcclelland Gastroesophageal reflux disease (disorder) Gastroesophageal reflux disease (disorder) Active Problem 03/19/2019 [facility] [place] Problem Active 2019-03-19 23:54:06 Vijay Mcclelland Human immunodeficiency virus infection (disorder) Human immunodeficiency virus infection (disorder) Active Problem 03/19/2019 [facility] [place] Problem Active 2019-03-19 23:54:06 Vijay Mcclelland Hypertensive disorder, systemic arterial (disorder) Hypertensive disorder, systemic arterial (disorder) Active Problem 03/19/2019 [facility] [place] Problem Active 2019-03-19 23:54:06 Sary Mcclelland Hyperglycemia Hype rglycemia Active Problem 08/01/2019 [facility] Problem Active 2 02:03:31 Vijay Mcclelland Hepatic cirrhosis, unspecified hepatic c irrhosis type, unspecified whether ascites present Hepatic cirrhosi s, unspecified hepatic cirrhosis type, unspecified whether ascites present Active Problem 08/01/2019 [facility] Problem Active 2 02:03:31 Vijay Mcclelland Renal insufficiency Sita l insufficiency Active Problem 08/01/2019 [facility] Problem Active 2019-08-01 02:03:31 Vijay Mcclelland Osteoporosis without current pathologica l fracture, unspecified osteoporosis type Osteoporosis wit hout current pathological fracture, unspecified osteoporosis type Active Problem 08/01/2019 [facility] Problem Active 2019-08-01 02:03:31 Uriah Mcclelland HIV disease HIV disease Active Problem 08/01/2019 [facility] Problem Active 2 02:03:31 Vijay Mcclelland HTN (hypertension) with goal to be determined HTN (hypertension) with goal to be determined Active Problem 08/01/2019 [facility] Problem Active 2019-08-01 02:03:31 Vijay Mcclelland Other chronic pain Othe r chronic pain Active Problem 08/01/2019 [facility] Problem Active 2019-08-01 02:03:31 Vijay Mcclelland Low back pain Low back pain Active Diagnosis 12/11/2018 [facility] Diagnosis Active 2018-12-11 02:02:14 Vijay Mcclelland Bleeding hemorrhoids Blee ding hemorrhoids Active Diagnosis 12/11/2018 [facility] Diagnosis Active 2018-12-11 02:02:14 Vijay Mcclelland Encounter to discuss test results Encounter to discuss test results Active Diagnosis 10/07/2018 [facility] Diagnosis Active 2018-10-07 02:03:32 [facility] Prostate cancer screening Pros miller cancer screening Active Diagnosis 08/30/2018 [facility] Diagnosis Active 2018-08-30 02:01:45 [facility] Physical exam Phys ical exam Active Diagnosis 08/30/2018 [facility] Diagnosis Active 2018-08-30 02:01:45 [facility] Pain in right hip Pain in right hip Active Diagnosis 07/28/2019 [facility] Diagnosis Active 2019-07-28 02:03:25 [facility] Pain in left hip Pain in left hip Active Diagnosis 07/28/2019 [facility] Diagnosis Active 2019-07-28 02:03:25 [facility] Insomnia, unspecified type Ins omnia, unspecified type Active Problem 08/01/2019 [facility] Problem Active 2019-08-01 02:03:31 [facility] Lumbago with sciatica, right side Lumbago with sciatica, right side Active Problem 08/01/2019 [facility] Problem Active 2019-08-01 02:03:31 [facility] Rash Rash Active Diagnosis 03/10/2019 [facility] Diagnosis Active 2019-03-10 03:06:56 [facility] Need for shingles vaccine Need for shingles vaccine Active Diagnosis 04/13/2019 [facility] Diagnosis Active 2019-04-13 03:01:36 [facility] Abnormal CBC Abno rmal CBC Active Diagnosis 03/10/2019 [facility] Diagnosis Active 2019-03-10 03:06:56 [facility] Pain in left knee Pain in left knee Active Diagnosis 06/15/2019 [facility] Diagnosis Active 2019-06-15 02:02:39 [facility] Prostatitis, unspecified prostatitis type Prostatitis, unspecified prostatitis type Active Diagnosis 04/13/2019 [facility] Diagnosis Active 2019-04-13 03:01:36 [facility] Hematuria, unspecified type He maturia, unspecified type Active Diagnosis 04/13/2019 [facility] Diagnosis Active 2019-04-13 03:01:36 [facility] Lumbago with sciatica, left side Lumbago with sciatica, left side Active Problem 08/01/2019 [facility] Problem Active 2019-08-01 02:03:31 [facility] [place] Nausea Naus ea Active Diagnosis 06/15/2019 [facility] Diagnosis Active 2019-06-15 02:02:39 [facility] Encounter for pre-operative cardiovascular clearance Encounter for pre-operative cardiovascular clearance Active Diagnosis 06/15/2019 [facility] Diagnosis Active 2019-06-15 02:02:39 [facility] HEMORRHAGE OF ANUS AND RECTUM HEMORRHAGE OF ANUS AND RECTUM Active [facility] Diagnosis Active 2018-12-04 22:30 :00 [facility] GROSS HEMATURIA MICHELLE S HEMATURIA Active [facility] Diagnosis Active 2019-03-20 13:57:00 [facility] RETENTION OF URINE, UNSPECIFIED RETENTION OF URINE, UNSPECIFIED Active [facility] Diagnosis Active 2019-03-20 13 :57:00 [facility] Acute cystitis with hematuria Acute cystitis with hematuria 03/17/2019 03/19/2019 [facility] Problem 2019 18:00:00 2019-03-19 23:54:06 2019-03-19 23:54:06 Vijay Castanonann Other retention of urine Othe r retention of urine 03/17/2019 03/19/2019 [facility] Problem 2019-03-17 18:00:00 2019 23:54:06 2019-03-19 23:54:06 [facility] Allergies, Adverse Reactions, Alerts Allergy Name Allergy Type Status Severity Reaction(s) Onset Date Inacti ve Date Treating Clinician Comments Source alejandra roberts Active Info Not Available 2019-06-11 00:00:0 0 [facility] Social History Social Habit Start Date Stop Date Quantity Comments Source Social History 2018-10-10 15:51:28 2018-10-10 15:51:28 [facility] Medications Ordered Medication Name Filled Medication Name Start Date Stop Da te Current Medication? Ordering Clinician Indication Dosage Frequency Signature (SIG) Comments Components Source Symfi 2019-06-15 02:02:39 Yes Kathleen Vicente a s directed [facility] Trazodone HCl 2019-06-15 02:02:39 Yes Kathleen Vicente 1-2 tablets [facility] [place] Isentress 2019-06-15 02:02:39 Yes Kathleen Vicente 1 tablet [facility] Xifaxan 2019-06-15 02:02:39 Yes Kathleen Vicente 1 tablet [facility] Amlodipine Besylate 2019-06-15 02:02:39 Yes Kathleen Vicente 1 tablet [facility] Oxybutynin Chloride ER 2019-06-15 02:02:39 Yes Kathleen Vicente 1 tablet [facility] Tamsulosin HCl 2019-06-15 02:02:39 Yes Kathleen Vicente not defined [facility] Hydrocodone-Acetaminophen 2019-06-15 02:02:39 Yes Kathleen Vicente 1 tablet as needed [facility] Hydrocodone-Acetaminophen 2019-06-15 02:02:39 Yes Kathleen Vicente as directed [facility] Zofran 2019-06-11 00:00:00 Yes Kathleen Vicente 1 tablet Vijay Mcclelland Pepcid 2019-05-26 00:00:00 Yes Kathleen Vicente 1/2 half tablet Vijay Mcclelland cefpodoxime 100 mg oral tablet 2019-03-18 02:26:00 Yes 100 mg = 1 tab, PO, Q12H, X 7 day, # 14 tab, 0 Refill(s) Vijay Mcclelland Morphine 2019-03-18 01:51:00 No 4 mg, Route: IVP, ONCE, Dosing Weight 83.636, kg, Priority: STAT, Start date: 03/17/19 19:51:00 [employer], Stop date: 03/17/19 19:51:00 [employer] SEC[employer]ITY CONSULTANT Vijay Mcclelland Zofran 2019-03-18 01:51:00 No 4 mg, Route: IVP, Drug form: INJ, ONCE, Dosing Weight 83.636, kg, Priority: STAT, Start date: 03/17/19 19:51:00 [employer] SECURITY CONSULTANT, Stop date: 03/17/19 19:51:00 PCI SECURITY CONSULTANT [facility] Ceftriaxone 2019-03-18 01:46:00 No Notes: (Same As: Rocephin). Use with 100 mL NS and infuse over 30 min MEDICATION WASTE Product Size: 1000 mg Product Wasted: ___ mg Vijay Mcclelland Sodium Chloride 0.9% (Bolus) IV 2019-03-18 01:46:00 No 1,000 mL, 1000 ml/hr, Infuse Over: 1 hr, Route: IV, 1,000, Drug form: INJ, ONCE, Priority: STAT, Dosing Weight 83.636 kg, Start date: 03/17/19 19:46:00 PCI SECURITY CONSULTANT, Stop date: 03/17/19 19:46:00 PCI SECURITY CONSULTANT, 0 Vijay Leo n Lisinopril-Hydrochlorothiazide 2019-03-10 03:06:56 Yes Kathleen Vicente 1 tablet Vijay Bailey traci Hydrocodone-Acetaminophen 2019-03-10 03:06:56 Yes Kathleen Vicente 1 tablet as needed Vijay Castanonann Norvasc 2019-03-10 03:06:56 Yes Kathleen Vicente 1 tablet Vijay Mcclelland Tamsulosin HCl 2019-03-10 03:06:56 Yes Kathleen Vicente not defined Vijay Mcclelland Oxybutynin Chloride ER 2019-03-10 03:06:56 Yes Kathleen Vicente not defined [facility] PEG 3350-KCl-Na Bicarb-NaCl 2019-03-10 03:06:56 Yes Kathleen Vicente not defined [facility] Xifaxan 2019-01-20 00:00:00 Yes Kathleen Vicente 1 tablet [facility] Tramadol HCl 2018-12-11 02:02:14 Yes Kathleen Vicente 1 tablet as needed [facility] Famotidine 2018-12-11 02:02:14 Yes Kathleen Vicente 1 tablet [facility] Propranolol 2018-11-22 02:00:00 No Notes: Give with food. (Same as: Inderal) [facility] propranolol 10 mg oral tablet 2018-11-21 20:37:00 Yes 10 mg = 1 tab, PO, Q12H, # 60 tab, 0 Refill(s), Pharmacy: [id number] ([facility] tramadol hydrochloride 50 MG Oral Tablet 2018-11-21 20:21:00 Yes 50 mg = 1 tab, PO, Q8H, PRN Pain, X 5 day, # 20 tab, 0 Refill(s) [facility] Cefuroxime 250 MG Oral Tablet 2018-11-21 19:55:00 Yes 250 mg = 1 tab, PO, BID, X 7 day, # 14 tab, 0 Refill(s), Pharmacy: Meredith [id number] ([facility] Streptococcus pneumoniae serotype 1 caps ular antigen diphtheria [id number] protein conjugate vaccine / Streptococcus pneumoniae serotype 14 capsular antigen diphtheria [id number] protein conjugate vaccine / Streptococcus pneumoniae serotype 18C capsular antigen d 2018-11-20 18:01:25 No Notes: Shake well prior to use (Same as: Prevnar 13) Colin riaelaine [place] Phenazopyridine 2018-11-20 17:30:00 No Notes: Give with meals. (Same as: Pyridium) [facility] Oxycodone Hydrochloride 5 MG Oral Tablet 2018-11-20 17:00:00 No Notes: (Same as: Roxicodone) [facility] 2018-11-20 15:01:00 No Notes: ( Same as: Diflucan) [facility] Ceftriaxone 2018-11-20 15:00:00 No Notes: (Same As: Rocephin). Use with 100 mL NS and infuse over 30 min MEDICATION WASTE Product Size: 1000 mg Product Wasted: ___ mg [facility] Norvasc 2018-11-20 02:03:35 Yes Delfina Mathru 1 tablet [facility] Protonix 2018-11-20 02:00:00 No Notes: Tablet should not be chewed or crushed. (Same as: Protonix) [facility] Hydralazine 2018-11-19 21:26:00 No 10 mg, Route: IVP, Q20Min, Dosing Weight 82.727, kg, PRN Elevated BP, Start date: 11/19/18 16:26:00 CDT, Duration: 2 doses or times, Stop date: Limited # of times [facility] Metoprolol 2018-11-19 21:26:00 No 1 mg, Route: IVP, Q5Min, Dosing Weight 82.727, kg, PRN Other -See Comment, Start date: 11/19/18 16:26:00 CDT, Duration: 5 doses or times, Stop date: Limited # of times [facility] Acetaminophen 2018-11-19 21:26:00 No 1,000 mg, Route: PO, Drug form: TAB, ONCE, Dosing Weight 82.727, kg, PRN Pain Score 1-3, Start date: 11/19/18 16:26:00 CDT [facility] Morphine 2018-11-19 21:26:00 No 2 mg, Route: IVP, Q5Min, Dosing Weight 82.727, kg, PRN Pain Score 4-6, Start date: 11/19/18 16:26:00 CDT, Duration: 5 doses or times, Stop date: Limited # of times [facility] Flumazenil 2018-11-19 21:26:00 No 0.2 mg, Route: IVP, PRN, Dosing Weight 82.727, kg, PRN Benzodiazepine Reversal, Initial dose, Start date: 11/19/18 16:26:00 CDT, Duration: 30 day, Stop date: 12/19/18 15:25:00 [employer] SECURITY CONSULTANT [facility] Naloxone 2018-11-19 21:26:00 No 0.4 mg, Route: IVP, Q2MIN, Dosing Weight 82.727, kg, PRN Narcotic Reversal, Start date: 11/19/18 16:26:00 CDT, Duration: 8 doses or times, Stop date: Limited # of times [facility] Albuterol 0.83 MG/ML Inhalant Solution 2018-11-19 21:26:00 No 2.49 mg, Route: NEB, Q20Min, Dosing Weight 82.727, kg, PRN Wheezing, Priority: STAT, Start date: 11/19/18 16:26:00 CDT, Duration: 30 day, Stop date: 12/19/18 15:25:00 [facility] Diphenhydramine 2018-11-19 21:26:00 No 12.5 mg, Route: IVP, Drug form: INJ, Q6H, Dosing Weight 82.727, kg, PRN Itching, Start date: 11/19/18 16:26:00 CDT, Duration: 30 day, Stop date: 12/19/18 16:25:00 [facility] Meperidine 2018-11-19 21:26:00 No 12.5 mg, Route: IVP, Q30Min, Dosing Weight 82.727, kg, PRN Other -See Comment, For shivering, Start date: 11/19/18 16:26:00 CDT, Duration: 2 doses or times, Stop date: Limited # of times [facility] Ondansetron 2018-11-19 21:26:00 No 4 mg, Route: IVP, ONCE, Dosing Weight 82.727, kg, PRN Nausea & Vomiting, Start date: 11/19/18 16:26:00 T [facility] Promethazine 2018-11-19 21:26:00 No 12.5 mg, Route: IM, ONCE, Dosing Weight 82.727, kg, PRN Nausea & Vomiting, Start date: 11/19/18 16:26:00 CDT [facility] phenylephrine ([facility]) 2018-11-19 20:46:00 No Route: IV, Drug form: INJ, ONCE, Stop date: 11/19/18 15:46:00 T [facility] dexamethasone ([facility]) 2018-11-19 20:46:00 No Route: IV, Drug form: INJ, ONCE, Stop date: 11/19/18 15:46:00 T [facility] glycopyrrolate ([facility]) 2018-11-19 20:46:00 No Route: IV, Drug form: INJ, ONCE, Stop date: 11/19/18 15:46:00 CDT [facility] neostigmine ([facility]) 2018-11-19 20:46:00 No Route: IV, Drug form: INJ, ONCE, Stop date: 11/19/18 15:46:00 CDT camila Mcclelland propofol ([facility]) 2018-11-19 19:45:00 No Route: IV, Drug form: INJ, ONCE, Stop date: 11/19/18 14:45:00 CDT camila Mcclelland rocuronium ([facility]) 2018-11-19 19:45:00 No Route: IV, Drug form: INJ, ONCE, Stop date: 11/19/18 14:45:00 CDT camila Mcclelland lidocaine ([facility]) 2018-11-19 19:45:00 No Route: IV, Drug form: INJ, ONCE, Stop date: 11/19/18 14:45:00 [facility] fentaNYL ([facility]) 2018-11-19 19:40:00 No Route: IV, Drug form: INJ, ONCE, Stop date: 11/19/18 14:40:00 CDT camila Mcclelland ondansetron ([facility]) 2018-11-19 19:40:00 No Route: IV, Drug form: INJ, ONCE, Stop date: 11/19/18 14:40:00 CDT camila Mcclelland Lactated Ringers Injection IV ([facility]) 1000 mL 2018-11-19 18:50:00 No Route: IV, Total Volume: 1,000, Start date: 11/19/18 13:50:00 CDT, Stop date: 11/19/18 14:50:00 CDT [facility] Exparel 2018-11-19 18:00:00 No Notes: (Same as: Exparel) NOT FOR IV use Postoperative analgesia: Infiltration [...] rotator cuff repair: 133 mg (10 mL) Vijay Mcclelland LR IV 1,000 mL 2018-11-19 17:50:00 No 1,000 mL, Rate: 40 ml/hr, Infuse over: 25 hr, Route: IV, Dosing Weight 82.727 kg, Total Volume: 1,000, Start date: 11/19/18 12:50:00 CDT, Duration: 1 day, Stop date: 11/20/18 12:49:00 CDT, 1.98, m2, 0 Vijay Mcclelland d50 syringe 2018-11-19 14:47:00 No 25 gm, 50 mL, Route: IV, Drug Form: INJ, Dosing Weight 82.727, kg, ONCE, Start date: 11/19/18 9:47:00 CDT, Stop date: 11/19/18 9:47:00 CDT, 0 [facility] Insulin regular 2018-11-19 14:47:00 No Notes: (Same as: Humulin R, NovoLIN R) Roll in palms of hands gently; Do not shake vigorously. WASTE: F/P - Black; E - Municipal Trash Bin Stable for 31 days at room temperature Expires in days from Date Vijya Mcclelland sodium bicarbonate 8.4% additive 75 mEq + D5W 1/2NS 1,000 mL 2018-11-19 14:46:00 No Notes: (sodium bicarb 8.4% (1 mEq/ml) 50 ml VL) Vijay Mcclelland abacavir 600 MG / Lamivudine 300 MG Oral Tablet 2018-11-19 14:00 :00 No 1 tab, Route: PO, Drug Form: TAB, Dosing Weight 82.727, kg, Daily, Start date: 11/19/18 9:00:00 CDT, Duration: 30 day, Stop date: 12/18/18 9:00:00 [employer] SECURITY CONSULTANT Vijay Mcclelland oxybutynin 2018-11-19 14:00:00 No Notes: (Same as: Ditropan XL) "Do Not Crush" [facility] tamsulosin 2018-11-19 14:00:00 No Notes: (Same As: Flomax) "Do Not Crush" [facility] Epivir 2018-11-19 14:00:00 No Notes: (Same as:Epivir) [facility] Ziagen 2018-11-19 14:00:00 No Notes: (Same as: Ziagen) [facility] Trazodone 2018-11-19 04:45:00 No Notes: ([facility] As: Desyrel) [facility] Dilaudid 2018-11-19 03:09:00 No Notes: ([facility] as: Dilaudid) [facility] Dilaudid 2018-11-19 00:15:00 No Notes: ([facility] e as: Dilaudid) [facility] ISENTRESS 2018-11-18 22:00:00 No 400 mg, 1 tab, Route: PO, Drug form: TAB, BID, Dosing Weight 82.727, kg, Start date: 11/18/18 17:00:00 CDT, Duration: 30 day, Stop date: 12/18/18 9:00:00 PCI SECURITY CONSULTANT, 0 [facility] XIFAXAN 2018-11-18 22:00:00 No Notes: Same as: Xifaxan [facility] NS 1,000 mL 2018-11-18 21:47:00 No 1,000 mL, Rate: 75 ml/hr, Infuse over: 13.3 hr, Route: IV, Dosing Weight 82.727 kg, Total Volume: 1,000, Start date: 11/18/18 16:47:00 CDT, Duration: 30 day, Stop date: 12/18/18 16:46:00 PCI SECURITY CONSULTANT, 1.98, m2, 0 [facility] Morphine 2018-11-18 21:46:00 No Not es: (Same as:MORPhine Sulfate) [facility] Protonix 2018-11-18 21:00:00 No Notes: For IV push reconstitute with 10 ml 0.9% sodium chloride and push over 2 minutes. (Same as: Protonix) [facility] Dextrose 50% Syringe 2018-11-18 20:37:00 No 12.5 gm, 25 mL, Route: IVP, Drug Form: INJ, Dosing Weight 82.727, kg, PRN, PRN Blood Glucose Results, Start date: 11/18/18 15:37:00 CDT, Duration: 30 day, Stop date: 12/18/18 14:36:00 PCI SECURITY CONSULTANT, 0 [facility] Glucagon 2018-11-18 20:37:00 No 1 mg, Route: IM, Drug form: PDR/INJ, PRN, Dosing Weight 82.727, kg, PRN Blood Glucose Results, Start date: 11/18/18 15:37:00 CDT, Duration: 30 day, Stop date: 12/18/18 14:36:00 PCI SECURITY CONSULTANT, 0 [facility] Morphine 2018-11-18 20:20:00 No 4 mg, Route: IVP, ONCE, Dosing Weight 82.727, kg, Start date: 11/18/18 15:20:00 CDT, Stop date: 11/18/18 15:20:00 CDT [facility] oxybutynin 10 mg oral tablet, extended release 2018-11-18 18:51: 00 Yes 10 mg = 1 tab, PO, Daily, 0 Refill(s) [facility] tamsulosin 0.4 mg oral capsule 2018-11-18 18:51:00 Yes 0.4 mg = 1 cap, PO, Daily, 0 Refill(s) [facility] padilla Tylenol 2018-11-18 18:08:00 No 650 mg, Route: PO, Drug form: TAB, ONCE, Dosing Weight 82.727, kg, Priority: STAT, Start date: 11/18/18 13:08:00 CDT, Stop date: 11/18/18 13:08:00 [facility] (Bolus) IV 2018-11-18 18:06:00 No 1,000 mL, 1,000 ml/hr, Infuse Over: 3 hr, Route: IV, ONCE, Priority: STAT, Dosing Weight 82.727 kg, Start date: 11/18/18 13:06:00 CDT, Stop date: 11/18/18 13:06:00 CDT [facility] Saline Flush 0.9% 2018-11-18 16:41:00 No Notes: (Same as: BD Posiflush) [facility] Metoclopramide 2018-11-18 16:41:00 No 10 mg, Route: IVP, Drug form: INJ, ONCE, Dosing Weight 82.727, kg, Priority: STAT, Start date: 11/18/18 11:41:00 CDT, Stop date: 11/18/18 11:41:00 CDT Vijay Castanonann Pepcid 2018-11-10 00:00:00 Yes Kathleen Vicente 1 tablet Vijay Castanonann Hydrocortisone 25 MG/ML Topical Cream [Anusol HC] 2018-10-14 18:30:00 Yes 1 appl, [place], BID, X 14 day, # 30 gm, 0 Refill(s) Vijay Mcclelland Sodium Chloride 0.9% IV 1,000 mL 2018-10-14 17:35:00 No 1,000 mL, Rate: 75 ml/hr, Infuse over: 13.3 hr, Route: IV, Dosing Weight 80 kg, Total Volume: 1,000, Start date: 10/14/18 12:35:00 CDT, Duration: 1 day, Stop date: 10/15/18 12:34:00 CDT, 1.96, m2, 0 [facility] ferrous sulfate 325 mg oral enteric coated tablet 2018-10-10 15:33:00 Yes 325 mg = 1 tab, PO, Daily, 0 Refill(s) Vijay Mcclelland rifaximin 550 MG Oral Tablet [XIFAXAN] 2018-10-10 15:32:00 Yes 550 mg = 1 tab, PO, BID, 0 Refill(s) Ariel l [facility] Trazodone Hydrochloride 50 MG Oral Tablet 2018-10-10 15:31:00 Yes 50 mg = 1 tab, PO, Bedtime, 0 Refill(s) Mo susie Mcclelland efavirenz 600 MG / Lamivudine 300 MG / T enofovir disoproxil fumarate 300 MG Oral Tablet [Symfi] 2018-10-10 15:30:00 Yes 1 tab, PO, QAM, 0 Refill(s) Vijay Mcclelland Lactulose 667 MG/ML Oral Solution 2018-10-10 15:29:00 Yes 10 gm = 15 mL, PO, Daily, 0 Refill(s) Vijay padilla lisinopril 2.5 mg oral tablet 2018-10-10 15:29:00 Yes 2.5 mg = 1 tab, PO, Daily, 0 Refill(s) Vijay padilla Pepcid AC 10 mg oral tablet, chewable 2018-10-10 15:29:00 Y es PO, Bedtime, 0 Refill(s) [facility] Raltegravir 400 MG Oral Tablet [ISENTRESS] 2018-10-10 15:28:00 Yes 400 mg = 1 tab, PO, BID, # 60 tab, 0 [facility] mg oral tablet 2018-10-10 15:23:00 Yes 10 mg = 1 tab, PO, Daily, 0 Refill(s) [facility] Vital Signs Vital Name Observation Time Observation Value Comments Source Weight 2019-04-10 15:00:00 [facility] Height 2019-04-10 15:00:00 [facility] [place] Temperature Oral (F) 2019-04-10 15:00:00 98.1 F [facility] Heart Rate 2019-04-10 15:00:00 [facility] Diastolic (mm Hg) 2019-04-10 15:00:00 [facility] Systolic (mm Hg) 2019-04-10 15:00:00 [facility] [place] Systolic (mm Hg) 2019-03-18 03:08:00 [facility] Diastolic (mm Hg) 2019-03-18 03:08:00 [facility] Respitory Rate 2019-03-18 03:08:00 [facility] Temperature Oral (F) 2019-03-18 03:08:00 98.2 F [facility] Respitory Rate 2019-03-18 02:04:00 [facility] [place] Systolic (mm Hg) 2019-03-18 02:04:00 [facility] [place] Diastolic (mm Hg) 2019-03-18 02:04:00 [facility] Respitory Rate 2019-03-18 00:32:00 [facility] Systolic (mm Hg) 2019-03-17 18:45:00 [facility] [place] Diastolic (mm Hg) 2019-03-17 18:45:00 [facility] [place] Heart Rate 2019-03-17 18:45:00 [facility] [place] Temperature Oral (F) 2019-03-17 18:45:00 98.1 F [facility] Height 2019-03-17 18:45:00 167.64 cm [facility] BMI Calculated 2019-03-17 18:45:00 [facility] [place] Weight 2019-03-17 18:45:00 [facility] [place] Weight 2019-03-05 16:45:00 [facility] [place] Height 2019-03-05 16:45:00 [facility] [place] Temperature Oral (F) 2019-03-05 16:45:00 98.1 F [facility] [place] Heart Rate 2019-03-05 16:45:00 [facility] [place] Diastolic (mm Hg) 2019-03-05 16:45:00 [facility] Systolic (mm Hg) 2019-03-05 16:45:00 [facility] [place] Weight 2018-12-04 16:30:00 [facility] [place] Height 2018-12-04 16:30:00 [facility] Heart Rate 2018-12-04 16:30:00 [facility] [place] Diastolic (mm Hg) 2018-12-04 16:30:00 [facility] Systolic (mm Hg) 2018-12-04 16:30:00 [facility] [place] Temperature Oral (F) 2018-11-21 16:14:00 100.0 F [facility] Heart Rate 2018-11-21 16:14:00 [facility] Systolic (mm Hg) 2018-11-21 16:14:00 [facility] Diastolic (mm Hg) 2018-11-21 16:14:00 [facility] [place] Temperature Oral (F) 2018-11-21 13:01:00 98.9 F [facility] Heart Rate 2018-11-21 13:01:00 [facility] [place] Systolic (mm Hg) 2018-11-21 13:01:00 [facility] [place] Diastolic (mm Hg) 2018-11-21 13:01:00 [facility] [place] Temperature Oral (F) 2018-11-21 09:59:00 99.9 F [facility] Heart Rate 2018-11-21 09:59:00 [facility] Systolic (mm Hg) 2018-11-21 09:59:00 [facility] [place] Diastolic (mm Hg) 2018-11-21 09:59:00 [facility] [place] Respitory Rate 2018-11-19 21:55:00 [facility] [place] Respitory Rate 2018-11-19 21:30:00 [facility] [place] Respitory Rate 2018-11-19 21:15:00 [facility] Height 2018-11-18 16:10:00 167.64 cm [facility] BMI Calculated 2018-11-18 16:10:00 [facility] [place] Weight 2018-11-18 16:10:00 [facility] Respitory Rate 2018-10-14 18:45:00 [facility] Systolic (mm Hg) 2018-10-14 18:45:00 [facility] [place] Diastolic (mm Hg) 2018-10-14 18:45:00 [facility] [place] Respitory Rate 2018-10-14 18:30:00 [facility] Systolic (mm Hg) 2018-10-14 18:30:00 [facility] Diastolic (mm Hg) 2018-10-14 18:30:00 [facility] Respitory Rate 2018-10-14 18:25:00 [facility] [place] Systolic (mm Hg) 2018-10-14 18:25:00 [facility] [place] Diastolic (mm Hg) 2018-10-14 18:25:00 [facility] Temperature Oral (F) 2018-10-10 15:35:00 97.6 F [facility] Heart Rate 2018-10-10 15:35:00 [facility] [place] Height 2018-10-10 15:20:00 170.18 cm [facility] Weight 2018-10-10 15:20:00 [facility] [place] BMI Calculated 2018-10-10 15:20:00 [facility] [place] Weight 2018-09-22 21:00:00 [facility] Height 2018-09-22 21:00:00 [facility] [place] Heart Rate 2018-09-22 21:00:00 [facility] [place] Diastolic (mm Hg) 2018-09-22 21:00:00 [facility] Systolic (mm Hg) 2018-09-22 21:00:00 [facility] Weight 2018-08-22 15:30:00 [facility] Height 2018-08-22 15:30:00 [facility] Heart Rate 2018-08-22 15:30:00 [facility] Diastolic (mm Hg) 2018-08-22 15:30:00 [facility] [place] Systolic (mm Hg) 2018-08-22 15:30:00 [facility] [place] Procedures Procedure Date / Time Performed Performing Clinician [facility] Achilles tendon repair 1984-02-12 00:00:00 [facility] Arthroplasty [facility] [place] Arthroplasty of knee [facility] rmann Cholecystectomy [facility] [place] Colonoscopy [facility] Esophagogastroduodenoscopy [facility] Operation [facility] [place] Encounters Start Date/Time End Date/Time Encounter Type Admission Type [facility] Care Department Encounter ID Source 2019-09-30 08:22:10 Outpatient [facility] LIS 7 [id number] [facility] 2019-03-16 13:15:40 Outpatient [facility] URO 7 [id number] [facility] 2018-09-26 16:58:08 Outpatient MHSE MHSE 7 [id number] [facility] 2019-09-07 14:30:00 2019-09-07 14:30:00 Outpatient [facility]SE MHSE [id number] 2019-08-25 09:00:00 2019-08-25 09:00:00 Outpatient MHSE MHSE [id number] 2019-07-29 14:41:00 2019-07-29 14:41:00 [facility] [id number] [facility] 2019-07-22 18:30:00 2019-07-22 18:30:00 [facility] [id number] [facility] 2019-06-29 09:27:00 2019-06-29 09:27:00 Outpatient [facility] MED [id number] 2019-06-11 13:00:00 2019-06-11 13:00:00 [facility] [id number] [facility]Works 2019-05-26 12:28:00 2019-05-26 12:28:00 [facility]patient [facility] [id number] eClinicalWorks 2019-05-15 10:14:00 2019-05-15 10:14:00 Outpatient [facility] [id number] eClinicalWorks 2019-05-05 15:31:00 2019-05-05 15:31:00 Outpatient [facility] [id number] eClinicalWorks 2019-04-27 15:05:00 2019-04-27 15:05:00 Outpatient [facility] [id number] eClinicalWorks 2019-04-23 15:48:00 2019-04-23 15:48:00 [facility] [id number] [facility]Works 2019-04-20 15:40:00 2019-04-20 15:40:00 Emergency E [facility]SE [facility]SE [id number] 2019-04-14 11:12:00 2019-04-14 11:12:00 Outpatient [facility] [id number] eClinicalWorks 2019-04-13 10:46:00 2019-04-13 10:46:00 Outpatient [facility] [id number] eClinicalWorks 2019-04-10 09:00:00 2019-04-10 09:00:00 Outpatient [facility] [id number] eClinicalWorks 2019-03-17 12:44:55 2019-03-17 21:07:00 Outpatient Uriah Rico [facility] [id number] 2019-02-13 09:04:00 2019-03-14 23:59:00 Outpatient Lakshmi Valencia [id number] 2019-03-05 10:45:00 2019-03-05 10:45:00 [facility] [id number] [facility] 10:00:00 2019-02-10 20:00:00 Outpatient Lakshmi Valencia [id number] 2018-12-19 10:05:00 2019-01-17 23:59:00 Outpatient Lakshmi Valencia [id number] 2018-11-17 09:25:00 2018-12-16 23:59:00 Outpatient Lakshmi Valencia [id number] 2018-12-12 08:30:00 2018-12-12 08:30:00 [id number] 2018-12-04 11:30:00 2018-12-04 11:30:00 Outpatient [facility] [id number] eClinicalWorks 2018-12-02 14:15:00 2018-12-02 14:15:00 Outpatient Faith Benavides [facility] [id number] 2018-11-25 10:56:00 2018-11-25 10:56:00 Outpatient [facility] [id number] [facility] 2018-11-18 11:08:56 2018-11-21 17:45:00 Outpatient Jaguar Granados [facility] MH[facility] [id number] 2018-11-19 08:13:00 2018-11-18 14:16:00 Inpatient E [facility]SE MED [id number] [facility] 2018-10-16 02:09:00 2018-11-14 23:59:00 Outpatient Lakshmi Valencia [id number] 2018-11-07 14:07:00 2018-11-07 14:07:00 Outpatient [facility] [id number] [facility] 2018-10-22 11:30:00 2018-10-22 11:30:00 Outpatient [facility] [id number] eClinicalWorks 2018-10-22 11:30:00 2018-10-22 11:30:00 [facility] [id number] [facility] 2018-10-14 11:30:00 2018-10-14 13:54:00 Outpatient Octaviano Landry MH[facility] MHSE [id number] 2018-10-14 11:30:00 2018-10-14 11:30:00 Outpatient [facility]SE [facility]SE [id number] 2018-09-12 09:30:00 2018-10-11 23:59:00 Outpatient Lakshmi Valencia [id number] 2018-09-22 16:00:00 2018-09-22 16:00:00 [facility] [id number] [facility] 2018-08-22 10:30:00 2018-08-22 10:30:00 [facility] [id number] [facility] Test Description Test Time Test Comments Results Result Comments Source URINE AND STOOL 2019-03-18 01:17:00 Marked *ABN*(03/17/19 7: 17 PM) [facility] [place] URINE AND STOOL 2019-03-18 01:17:00 Test Item UA Spec Grav (test code = UA Spec Grav) 1.018 1 [facility] BIOJO6902[facility]10-68 01:17:00* Test Item Value Reference Range Interpretation Comments UA pH (test code = UA pH) 8.0 1 5.0-8.0 [facility] [id number] 01:17:00Negative *NA*(03/17/19 7:17 PM) [facility] DRDFS6074-38-12 01:17:00Large *ABN*(03/17/19 7:17 PM) [facility] MLCZZ0889-35-90 01:17:00Negative (03/17/19 7:17 PM) [facility] FPFXS8877-59-90 01:17:00Moderate *ABN*(03/17/19 7:17 PM) [facility] YJCKZ1690-29-54 01:17:00>182[facility] FHTMQ8101-52-25 01:17:00>182[facility]annCHE[facility] XPSPH6405-28-71 19:02:25393 [facility] CXZNQ5336-11-53 19:02:0037[facility]annCHEM PANEL 2019-03-17 19:02:002.85[facility]annCHEM VWOKA7147-90-47 19:02:95975Aothjgcx HermannCHEM OAWFF1401-08-33 19:02:005.2[facility]annCHEM LKAGZ1344-87-66 19:02:83132Ztirtqxj HermannCHEM LVDLS5481-21-58 19:02:0017[facility]annCHEM IJBYZ1313-24-42 19:02:008.5[facility]annCHE[facility] YOQDT2427-99-67 19:02:0012.2 [facility]annCHE[facility] EMCDV0078-78-03 19:02:0022[facility]annHEMATOLOGY 2019-03-17 19:02:003.5[facility] YekphanXFATTJXWGY8457-03-79 19:02:002.67[facility] HoltwboDGONRVWZCA7960-36-66 19:02:009.2[facility] NldrvfdBNGIPBUIMU1883-69-19 19:02:0027.2[facility] YwttmjgYCGUNTTBTQ2959-49-69 19:02:40778.6[facility] LXRRWCTQPX5619-05-20 19:02:00* Test Item Value Reference Range Interpretation Comments MCH (test code = MCH) 34.5 pg 27.0-31.0 [facility] PjrhwqxRHRGGZKCBP2083-14-02 19:02:0033.9[facility]annHEMATOLOGY 2019-03-17 19:02:0014.6[facility] FbopqmsSDUBHOFLMI9572-35-96 19:02:0091[facility] HexkuujJGRTEZEFBM0473-04-35 19:02:007.0[facility] FlbsiieJSFKEOAPJU2167-83-56 19:02:00* Test Item Value Reference Range Interpretation Comments PT (test code = PT) 15.0 s 12.0-14.7 [facility] PnqdubmVCLQKNIQLR4374-34-07 19:02:00* Test Item Value Reference Range Interpretation Comments INR (test code = INR) 1.17 1 0.85-1.17 [facility] NaliobfGHUUEUCVZY4865-20-80 19:02:00* Test Item Value Reference Range Interpretation Comments PTT (test code = PTT) 38.5 s 22.9-35.8 [facility] OxibbueFGTFFWSKAO0003-80-02 19:02:00Normal (03/17/19 1:02 PM)[facility] TqqawhvPNFUWDGUGV2184-31-56 19:02:0081.1[facility] RyfyovsYYJBDFZSPI3161-94-09 19:02:003.1[facility] BayylhpNLKYHAKWIO4025-04-25 19:02:0015.5[facility] [place] IIJPNAWYGB5614-19-51 19:02:000.1[facility] SnblbcnUICTXSNALX9746-42-11 19:02:000.2 [facility] LgpbdskLLRWPYCQNP3866-74-51 19:02:002.8[facility]annHEMATOLOGY 2019-03-17 19:02:000.1[facility] JlrkooiKHAWOKXEVG2626-73-64 19:02:000.5[facility] KvsdhuvVJHPVBYGTQ3295-86-42 19:02:001+ *ABN*(03/17/19 1:02 PM)[facility]annCHEM TSCAK8968-52-93 09:17:002.0[facility] DweizznGIUHPITYQQUD6447-69-11 09:17:008.9 [facility] KhszradUXCHZRZBLXSH3246-97-41 09:17:90386Inxbeils HermannELECTROLYTES 2018-11-21 09:17:0019[facility] RshaeghGSOQGYFGRXJE1243-43-16 09:17:001.71[facility] ZojzcjcTMVQZIZIMMDF1796-92-62 09:17:33017Jsqjlwjm UnhvptmLWQQSGTKWWCG5710-49-10 09:17:003.9[facility] YkhtanhRQLWNZXKUAEM3081-63-69 09:17:35186Imrsxjti [place] GLNWBBVVNJYO6839-62-60 09:17:0022[facility] LpjvjzvFNYCYGMAISAU6442-17-62 09:17:00 7.4[facility] LzlqzmkIBUHSRKLQCQS5474-58-50 09:17:0041[facility]annHEMATOLOGY 2018-11-21 09:17:0073.0[facility] VpqwplpEIPKNSYIUH7918-37-29 09:17:007.4[facility] EeowmquQPRWEAEFMW6677-74-97 09:17:0012.1[facility] RfdldsvYFGYBZNMUJ9806-81-92 09:17:007.1[facility] McgjaeuVYDHPLKZQQ3138-98-32 09:17:000.4[facility] [place] LAODOGVLLU7222-32-29 09:17:002.6[facility] EheujujCLARZZLJSJ4103-13-57 09:17:000.3 [facility] AwcxqaoDRGMESBVUH6383-99-44 09:17:000.4[facility]annHEMATOLOGY 2018-11-21 09:17:000.3[facility] IvhwqyaZBGONUVPFX7212-85-54 09:17:003.6[facility] HurjimyLMHKELNKHZ3471-89-97 09:17:002.50[facility] AlwneriSBMWBYUKVE7676-17-77 09:17:008.4[facility] DkrosloQURDUGHIBI1885-92-69 09:17:0024.4[facility] IMEWNGFFBO7391-27-64 09:17:0097.5[facility] JfhbxryOKBOAQMAWM5485-69-44 09:17:00* Test Item Value Reference Range Interpretation Comments MCH (test code = MCH) 33.5 pg 27.0-31.0 [facility] FqaoqzmGPLKZSVOGH6963-73-39 09:17:0034.4[facility]annHEMATOLOGY 2018-11-21 09:17:0018.3[facility] VerhiusHKNRVKFQKK2844-32-24 09:17:0063[facility] DqjdmihTSGWAJRGRK2985-34-29 09:17:007.5[facility] ZsosiueIBMRSQALOWHH9112-27-09 10:19:0010.0[facility] OnpnbcgCVIJZNQQXQBS4245-23-06 10:19:27540Hnzfnkty [facility] AHASDUNRSEAV6820-83-85 10:19:0018[facility] LaevqhgKCECQWYKBWHA8988-17-32 10:19:00 1.57[facility] YftvnkkRRZSNLRSTHVA0641-23-31 10:19:89338Iaoywnmd [place] RSXPYLTRIDTM1604-13-26 10:19:005.0[facility] BdbahopKCLLEQEGUUBS9435-38-44 10:19:43346Wccgfoec KkkjvmaIJSMADMPCRUD6742-48-83 10:19:0020[facility] GOLDVJUYMQBQ2481-52-36 10:19:007.5[facility] VxtpuliTFENWRVBIXFJ5493-63-44 10:19:0045[facility] MeizdmmBRYYIWLKWK4766-95-31 10:19:003.5[facility] RPISMXWNSJ5907-15-47 10:19:002.71[facility] TnbbjjoARKLIZVOGQ6879-10-44 10:19:00 9.0[facility] XhpfdolBIZXUDYZWO7013-85-37 10:19:0026.4[facility]annHEMATOLOGY 2018-11-20 10:19:0097.5[facility] TisyrzwHLGQYJAJJQ7178-82-15 10:19:00* Test Item Value Reference Range Interpretation Comments MCH (test code = MCH) 33.3 pg 27.0-31.0 [facility] QctercrGNYKJXTBNL4747-07-47 10:19:0034.2[facility]annHEMATOLOGY 2018-11-20 10:19:0018.8[facility] NbhzabwLJHIQCOUEC3472-05-77 10:19:0072[facility] SgyslyiSUGAMIKNAY2650-66-52 10:19:007.9[facility] TzqwdtdCNPBGZDOPN6345-38-62 10:19:00Normal (11/20/18 5:19 AM)[facility] FuggfieLXOHYXYRHJ1899-82-59 10:19:00 Normal (11/20/18 5:19 AM)[facility] WfssrwjWQCWTGBQLJ3761-14-37 10:19:0075.4 [facility] TweesnhGVZVRECWNZ7254-67-80 10:19:009.0[facility]annHEMATOLOGY 2018-11-20 10:19:0010.3[facility] LupmajlSUMZTEUHXU3673-56-07 10:19:005.0[facility] JrtnoxsDVPZXIHIFY8145-64-68 10:19:000.3[facility] XdofocaCTHQPFGILH3990-10-35 10:19:002.6[facility] MdnlioiCKBBQBZXZV7591-19-81 10:19:000.3[facility] [place] XWHDESOGFM4471-67-75 10:19:000.4[facility] GegewstKPHDVGUCTC1360-34-48 10:19:000.2 [facility] VIONA2184-44-66 00:27:00Yellow *NA*(11/19/18 7:27 PM) [facility] RFQKN0386-90-64 00:27:00Slight *ABN*(11/19/18 7:27 PM) [facility] RCATH0661-11-69 00:27:00* Test Item Value Reference Range Interpretation Comments UA Spec Grav (test code = UA Spec Grav) 1.010 1 [facility] GVIJP5978-61-81 00:27:00* Test Item Value Reference Range Interpretation Comments UA pH (test code = UA pH) 8.0 1 5.0-8.0 [facility] MOYWH7682-27-52 00:27:00Negative *NA*(11/19/18 7:27 PM) [facility] IDDIY7316-40-86 00:27:00Moderate *ABN*(11/19/18 7:27 PM)[facility] LIZDC2137-02-51 00:27:00Positive *ABN*(11/19/18 7:27 PM)[facility] VVBRQ9102-04-19 00:27:00Large *ABN*(11/19/18 7:27 PM)[facility] JACQS5878-13-50 00:27:0070[facility] VVJTN5658-34-59 00:27:003[facility] OXPI1596-11-35 00:27:0038.40 [facility] DHIO1354-97-17 00:27:85642Ahwyetjb HermannCHEM PANEL 2018-11-19 21:06:16766Jsbjhbnb HermannCHEM JJILV8147-51-11 21:06:0018[facility]annCHEM ZWJVE3602-76-71 21:06:001.66[facility]annCHEM TEMGR4908-58-59 21:06:62526Utkwtcsv HermannCHEM CGYNH5956-01-68 21:06:005.7[facility] HermannCHEM AWVNW7420-84-64 21:06:80478Lqhrvnpi HermannCHEM UBNPG6113-21-04 21:06:0021 [facility]annCHE[facility] SJGMG1303-17-91 21:06:007.4[facility]annCHEM PANEL 2018-11-19 21:06:0010.7[facility] HermannCHEM CDRDB2242-72-55 21:06:0042[facility]BL[facility] BANK MVLXGLT6784-95-84 18:09:00Product available 5(11/19/18 1:09 PM) [facility] CLMJOGF2716-28-44 18:06:00Product available 6(11/19/18 1:06 PM)[facility] NZELFAO1061-78-23 18:05:00Product available 4(11/19/18 1:05 PM)[facility] ApyazhgGTVTKGZLVY0831-82-48 11:41:0060.4[facility] ZbhggcdIGNWMMIUQJ0568-40-96 11:41:0015.5[facility] EmkpllwTSFCZTEKYR1159-65-17 11:41:0011.0[facility] DrmmlbiZFRKAXTXEF5868-72-84 11:41:0012.2[facility] [place] AQFMHXGPMV8562-62-71 11:41:000.9[facility] KlwnrtnGMCKFFRDMU6563-48-66 11:41:001.7 [facility] UzucfavUJKDQZLBLW9494-10-17 11:41:000.4[facility]annHEMATOLOGY 2018-11-19 11:41:000.3[facility] BemzyqoQRWWTVUUYK1297-23-71 11:41:000.3[facility] XjuswoxKRSXLFHHUM4072-17-90 11:41:001+ *ABN*(11/19/18 6:41 AM)[facility] [place] RJMWCWAAIC6862-33-08 11:41:002.8[facility] YckzrelPQHBTRVZDZ8430-62-76 11:41:00 2.37[facility] SomfbxdAESPQTVPQG5695-19-49 11:41:008.1[facility]annHEMATOLOGY 2018-11-19 11:41:0024.1[facility] MllynnwAUNGUIMJBD0401-29-39 11:41:74673.4 [facility] LqjerwzILIDUWRRRE2764-34-49 11:41:00* Test Item Value Reference Range Interpretation Comments MCH (test code = MCH) 34.1 pg 27.0-31.0 [facility] IbsywfxFEVMJKHMNM0968-92-34 11:41:0033.7[facility]annHEMATOLOGY 2018-11-19 11:41:0016.9[facility] EonoglgBNJIEUQCRU2451-25-43 11:41:0074[facility] IwufdozKWIIXDOBIG0854-82-23 11:41:007.2[facility]annBL[facility]OD BANK RESULTS 2018-11-18 16:57:00Negative (11/18/18 11:57 AM)[facility]annCHEM PANEL 2018-11-18 16:57:00* Test Item Value Reference Range Interpretation Comments B/C Ratio (test code = B/C Ratio) 13 1 6-25 [facility]CHE[facility] JKEJD8346-15-35 16:57:004.6[facility]annCHEM PANEL 2018-11-18 16:57:00* Test Item Value Reference Range Interpretation Comments A/G Ratio (test code = A/G Ratio) 0.7 1 0.7-1.6 [facility]annCHE[facility] KVSSW7500-65-38 16:57:007.6[facility] HermannCHEM PANEL 2018-11-18 16:57:003.0[facility]annCHEM TXXLT7682-50-54 16:57:0029[facility] HermannCHEM EEDUZ5369-95-26 16:57:0040[facility] HermannCHEM IBLQY9652-11-07 16:57:86503Nlcnurrs HermannCHEM PPDCU3504-97-15 16:57:000.5[facility] [place] BILCRQFCUK4276-83-22 16:57:00* Test Item Value Reference Range Interpretation Comments INR (test code = INR) 1.01 1 0.85-1.17 [facility] HospitalDggqhbdPRPSRHOCEA4020-09-56 16:57:00* Test Item Value Reference Range Interpretation Comments PT (test code = PT) 13.1 s 12.0-14.7 [facility]yiXNMHDAZBMP3184-08-58 16:57:00* Test Item Value Reference Range Interpretation Comments PTT (test code = PTT) 39.6 s 22.9-35.8 [facility] HospitalMsmogeoFAPQMEVEFX1529-98-01 16:57:001+ *ABN*(11/18/18 11:57 AM)[facility]
[2020-01-03 07:37] LABS: BASOPHILS % 0.3 % (0.0-1.0); HEMATOCRIT 34.6 % (38.2-49.6); HEMOGLOBIN 11.7 g/dL (14.0-18.0); LYMPHOCYTES # (AUTO) 0.5 (1.0-3.2); LYMPHOCYTES % 6.7 % (18.0-39.1); MEAN CORPUSCULAR HEMOGLOBIN 34.7 pg (28-32); MEAN CORPUSCULAR HGB CONC 33.8 g/dL (31-35); MEAN CORPUSCULAR VOLUME 102.7 fL (81-99); MONOCYTES # (AUTO) 0.4 (0.2-0.8); NEUTROPHILS # (AUTO) 6.5 (2.1-6.9); NEUTROPHILS % 87.5 % (38.7-80.0); PLATELET COUNT 113 x10e3/uL (140-360); RED BLOOD COUNT 3.37 x10e6/uL (4.3-5.7)
[2020-01-03 07:44] LABS: CLARITY,URINE SL CLOUDY (CLEAR); COLOR,URINE YELLOW (YELLOW)
[2020-01-03 07:45] LABS: LEUKOCYTE ESTERASE ,URINE TRACE (NEGATIVE); NITRITE,URINE POSITIVE (NEGATIVE)
[2020-01-03 07:46] LABS: BILIRUBIN,URINE SMALL (NEGATIVE); KETONES,URINE 1+ (NEGATIVE); PROTEIN,URINE DIPSTICK >=300 (NEGATIVE); URINE UROBILINOGEN 0.2 mg/dL (0.2 - 1)
[2020-01-03 07:59] LABS: ALBUMIN/GLOBULIN RATIO 0.4 (0.8-2.0); ANION GAP 17.1 mmol/L (8-16); CALCIUM 7.5 mg/dL (8.4-10.2); CREATININE, SERUM 2.09 mg/dL (0.72-1.25); POTASSIUM 4.1 mmol/L (3.5-5.1)
[2020-01-03 08:00] LABS: BACTERIA,URINE FEW /HPF; EPITHELIAL CELLS,URINE FEW /LPF; RBC,URINE 21-50 /HPF (0-5)
--- NOTE | 2020-01-03 08:06 | Emergency Department Note ---
History of Present Illnes History of Present Illness Chief Complaint: COVID PUI History of Present Illness This is a 69 year old male arrives to the ED for hypoxia, patient with a history of HIV/AIDS and recent diagnosis of pneumonia . Chief Complaint Comment PATIENT IN FROM THE MEDICAL RESORT FOR HYPOXIA AND SHORTNESS OF BREATH; O2 SATS 86% ON NASAL CANNULA; PATIENT O2 SATS 97% ON NRB. PER MEDICAL RESORT STAFF PATIENT RECENTLY DIAGNOSED WITH PNEUMONIA. Historian: Patient, Clinical Nurse Manager/EMS Arrival Mode: [place] Onset (how long ago): day(s) Severity: moderate Onset quality: gradual Duration (how long): day(s) Progression: worsening Chronicity: new Context: Reports recent illness Relieving factors: none Past Medical/Family History Physician Review I have reviewed the patient's past medical and family history. Any updates have been documented here. Past Medical History Recent Fever: No Clinical Suspicion of Infectio: Yes New/Unexplained Change in Ment: No Past Medical History: Hypertension, Cancer, Liver Disease, HIV, ESRD, Hemodyalisis, GERD, Chronic Kidney Disease Other Medical History: MRSA SIRS RECTAL CANCER BPH Past Surgical History: Hip Replacement, Knee Replacement, Colon Resection Social History Smoking Cessation: Former smoker Alcohol Use: None Any Illegal Drug Use: No Physically hurt or threatened: No Other Any Pre-Existing Lines (PICC,: No Review of Systems Review of Systems Constitutional: Reports as per HPI, Reports fever, Reports malaise, Reports weakness EENTM: Reports no symptoms Cardiovascular: Reports no symptoms Respiratory: Reports as per HPI, Reports chest congestion, Reports cough, Reports dyspnea on exertion Gastrointestinal: Reports no symptoms Genitourinary: Reports no symptoms Musculoskeletal: Reports no symptoms Integumentary: Reports no symptoms Neurological: Reports no symptoms Psychological: Reports no symptoms Endocrine: Reports no symptoms Hematological/Lymphatic: Reports no symptoms Physical Exam Related Data Allergies: Coded Allergies: codeine (Verified Allergy, Unknown, 01/03/20) shellfish derived (Verified Allergy, Unknown, 01/03/20) stavudine (Verified Allergy, Unknown, 01/03/20) tomato (Verified Allergy, Unknown, 01/03/20) Triage Vital Signs Vital Signs Date Time Temp Pulse Resp B/P (MAP) Pulse Ox O2 Delivery O2 Flow Rate FiO2 01/03/20 07:14 98.6 98 34 141/72 97 Non-Rebreather 15.0 Vital signs reviewed: Yes Physical Exam CONSTITUTIONAL Constitutional: Present distressed, Present ill appearing HENT HENT: Present normocephalic, Present atraumatic, Present oropharynx clear/mo ist, Present nose normal HENT L/R: Present left ext ear normal, Present right ext ear normal EYES Eyes: Reports PERRL, Reports conjunctivae normal NECK Neck: Present ROM normal PULMONARY Pulmonary: Present respiratory distress; Absent effort normal, Absent breath sounds normal CARDIOVASCULAR Cardiovascular: Present regular rhythm, Present heart sounds normal, Present capillary refill normal, Present normal rate GASTROINTESTINAL Abdominal: Present soft, Present nontender, Present bowel sounds normal GENITOURINARY Genitourinary: Present exam deferred SKIN Skin: Present warm, Present dry MUSCULOSKELETAL Musculoskeletal: Present ROM normal NEUROLOGICAL Neurological: Present alert, Present no gross motor or sensory deficits PSYCHOLOGICAL Psychological: Present mood/affect normal, Present judgement normal Results Laboratory Result Diagram: 01/03/20 0719 01/03/20 0719 Laboratory Laboratory Tests Test 01/03/20 07:19 White Blood Count 7.46 x10e3/uL (4.8-10.8) Red Blood Count 3.37 x10e6/uL (4.3-5.7) Hemoglobin 11.7 g/dL (14.0-18.0) Hematocrit 34.6 % (38.2-49.6) Mean Corpuscular Volume 102.7 fL (81-99) Mean Corpuscular Hemoglobin 34.7 pg (28-32) Mean Corpuscular Hemoglobin Concent 33.8 g/dL (31-35) Red Cell Distribution Width 17.0 % (11.7-14.4) Platelet Count 113 x10e3/uL (140-360) Neutrophils (%) (Auto) 87.5 % (38.7-80.0) Lymphocytes (%) (Auto) 6.7 % (18.0-39.1) Monocytes (%) (Auto) 5.0 % (4.4-11.3) Eosinophils (%) (Auto) 0.0 % (0.0-6.0) Basophils (%) (Auto) 0.3 % (0.0-1.0) Neutrophils # (Auto) 6.5 (2.1-6.9) Lymphocytes # (Auto) 0.5 (1.0-3.2) Monocytes # (Auto) 0.4 (0.2-0.8) Eosinophils # (Auto) 0.0 (0.0-0.4) Basophils # (Auto) 0.0 (0.0-0.1) Absolute Immature Granulocyte (auto 0.04 x10e3/uL (0-0.1) Urine Color Yellow (YELLOW) Urine Clarity Sl cloudy (CLEAR) Urine pH 5.5 (5 - 7) Urine Specific Keavy >=1.030 (1.010-1.025) Urine Protein >=300 (NEGATIVE) Urine Glucose (UA) Negative (NEGATIVE) Urine Ketones 1+ (NEGATIVE) Urine Blood Large (NEGATIVE) Urine Nitrite Positive (NEGATIVE) Urine Bilirubin Small (NEGATIVE) Urine Urobilinogen 0.2 mg/dL (0.2 - 1) Urine Leukocyte Esterase Trace (NEGATIVE) Urine RBC 21-50 /HPF (0-5) Urine WBC 11-20 /HPF (0-5) Urine Epithelial Cells Few /LPF (NONE) Urine Bacteria Few /HPF (NONE) Sodium Level 133 mmol/L (136-145) Potassium Level 4.1 mmol/L (3.5-5.1) Chloride Level 105 mmol/L (98-107) Carbon Dioxide Level 15 mmol/L (22-29) Anion Gap 17.1 mmol/L (8-16) Blood Urea Nitrogen 21 mg/dL (7-26) Creatinine 2.09 mg/dL (0.72-1.25) Estimat Glomerular Filtration Rate 32 ML/MIN (60-) BUN/Creatinine Ratio 10 (6-25) Glucose Level 114 mg/dL (74-118) Calcium Level 7.5 mg/dL (8.4-10.2) Total Bilirubin 1.1 mg/dL (0.2-1.2) Aspartate Amino Transf (AST/SGOT) 57 IU/L (5-34) Alanine Aminotransferase (ALT/SGPT) 13 IU/L (0-55) Alkaline Phosphatase 170 IU/L (40-150) Creatine Kinase 48 IU/L (30-200) Total Protein 7.7 g/dL (6.5-8.1) Albumin 2.0 g/dL (3.5-5.0) Globulin 5.7 g/dL (2.3-3.5) Albumin/Globulin Ratio 0.4 (0.8-2.0) Lab results reviewed: Yes Imaging Imaging results reviewed: Yes Impressions IMPRESSION: 1. Diffuse interstitial and airspace opacities throughout both lungs, most pronounced in the right upper lobe with probable partial collapse. Constellation of findings are most compatible with multifocal pneumonia/ARDS. 2. Mild cardiomegaly. Critical Care Time Total Critical Care Time (min): 75 Critical care time exclusive o: separately billable procedures Critcal care necessary due to: respiratory failure, sepsis, shock Critcal care time spent by me: blood dram for specimens, interpret cardiac output measures, evaluation patient response to tx, order/perform tx or interventions, order/review laboratory studies, order/review radiographic studies, pulse oximetry, re-evaluation of patient condition Assessment & Plan Medical Decision Making MDM 69-year-old male arrives the ED in acute respiratory distress secondary to the coronavirus. Patient noted to have elevated lactic acid, also concerns of fluid overload. Patient placed on Vapotherm and required ICU admission high level of care. Assessment & Plan Final Impression: (1) Septic shock (2) Acute respiratory distress syndrome (ARDS) (3) Acute respiratory distress syndrome (ARDS) due to 2019-nCoV (4) Pneumonia Depart Disposition: TRANS TO OTHER [facility] Last Vital Signs Date Time Temp Pulse Resp B/P (MAP) Pulse Ox O2 Delivery O2 Flow Rate FiO2 01/03/20 07:14 98.6 98 34 141/72 97 Non-Rebreather 15.0 LISSETTE MONGE DO Jan 03, 2020 08:06
[2020-01-03 08:08] LABS: CREATINE KINASE MB 1.4 ng/mL (0-5.0)
--- NOTE | 2020-01-03 08:16 | Diagnostic Imaging Report ---
EXAMINATION: CHEST SINGLE (PORTABLE) INDICATION: ^Y ^SOB ^[id number] ^[id number] COMPARISON: None FINDINGS: TUBES and LINES: None. LUNGS: Low lung volumes. There is diffuse interstitial and airspace opacities throughout both lungs, most pronounced in the right upper lobe. PLEURA: No pleural effusion or pneumothorax. HEART AND MEDIASTINUM: The cardiomediastinal silhouette is mildly enlarged. BONES AND SOFT TISSUES: No acute osseous lesion. Soft tissues are unremarkable. UPPER ABDOMEN: No free air under the diaphragm. IMPRESSION: 1. Diffuse interstitial and airspace opacities throughout both lungs, most pronounced in the right upper lobe with probable partial collapse. Constellation of findings are most compatible with multifocal pneumonia/ARDS. 2. Mild cardiomegaly. Signed by: Rock Ya MD on 01/03/2020 8:13 AM
[2020-01-03] MEDS: SODIUM CHLORIDE 0.9% 1000ML 1,000 ML IV STA (08:20)
[2020-01-03] MEDS: SODIUM CHLORIDE 0.9% 1000ML 1,000 ML IV SCH (08:33)
[2020-01-03] MEDS: CEFEPIME 1GM/NS 0.9% 50 ML 50 ML IV STA (08:47)
[2020-01-03] MEDS: VANCOMYCIN 1GM/NS 250 ML 250 ML IV STA (08:47)
[2020-01-03] MEDS: FUROSEMIDE INJ 10 MG/ML 4 ML VIAL IV ONE (09:45)
[2020-01-03] MEDS: SODIUM CHLORIDE 0.9% 500ML 500 ML IV STA (11:23)
== END 2020-01-03 12:55 | disposition other institution (70) ==
LOC: ER 07:27
DX: U07.1 COVID-19 (principal); J80 Acute respiratory distress syndrome; R65.21 Severe sepsis with septic shock; I12.0 Hypertensive chronic kidney disease with stage 5 chronic kidney disease or end stage renal disease; N18.6 End stage renal disease; Z99.2 Dependence on renal dialysis; B20 Human immunodeficiency virus [HIV] disease; K21.9 Gastro-esophageal reflux disease without esophagitis; K76.9 Liver disease, unspecified; Z86.14 Personal history of Methicillin resistant Staphylococcus aureus infection; Z85.048 Personal history of other malignant neoplasm of rectum, rectosigmoid junction, and anus
CPT/HCPCS: 36415; 71045; 80053; 81001; 82550; 82553; 83605; 83880; 84484; 85025; 87040; 93005; 94660; 99285; J0692; J1940; J3370; J7030; U0002